=== PATIENT | female | born 1960 | race Two or more races ===

== ENCOUNTER 2025-01-03 21:17 | Inpatient (IN) | payer MEDICARE, MEDICAID, SELFPAY ==
[2025-01-03 21:21] VITALS: BP 145/83; PULSE 79; RESP 19; TEMP 36.7; O2SAT 95; BMI 32.3
--- NOTE | 2025-01-03 21:30 | EKG_ITS ---
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
--- NOTE | 2025-01-03 21:30 | XR_ITS ---
Examination: CT brain head without contrast. 2-D sagittal coronal reconstructions Date and time of exam:January 03, 2025 10:26 PM INDICATIONS: Altered mental status today CTDI: vol (mGy):46.1 DLP: (mGycm):868 Technique: Multiple CT axial sections of the brain have been obtained, 5 mm slice thickness. Contrast has not been administered. 2-D sagittal, coronal reconstructions have been obtained Low dose protocols were performed. One or more of the following dose reduction techniques were used; automated exposure control, adjustment of the mA and/or KV according to patient size, use of iterative reconstruction technique. Findings: No significant ventricular enlargement. Intra-axial or extra-axial hemorrhage density is not seen. No mass effect or midline shift Basal cisterns are not remarkable. Fourth ventricle is midline. Cranial vault intact. Old fracture medial wall left orbit Impression: Negative for acute hemorrhage, mass effect or midline shift Advise clinical correlation and follow up accordingly
[2025-01-03 21:38] VITALS: PULSE 80; RESP 20; O2SAT 97
[2025-01-03 21:45] LABS: Basophils # (Auto) 0.1 Thou/mm3 (0.0-0.2); Basophils % (Auto) 1 % (0-2.5); Eosinophils # (Auto) 0.2 Thou/mm3 (0.0-0.5); Eosinophils % (Auto) 3 % (0-10); Hematocrit 33.6 % (36.0-46.0); Hemoglobin 11.2 g/dL (12.0-16.0); Immature Granulocytes % (Auto) 1 % (0-0); Immature Granulocytes Auto 0.07 Thou/mm3 (0.00-0.00); Lymphocytes # (Auto) 1.8 Thou/mm3 (1.0-4.8); Lymphocytes % (Auto) 24 % (10-50); Mean Corpuscular HGB Conc 33.3 g/dl (31.0-37.0); Mean Corpuscular Hemoglobin 30.6 pg (25.0-35.0); Mean Corpuscular Volume 92 fL (80-100); Monocytes # (Auto) 0.6 Thou/mm3 (0.0-0.8); Monocytes % (Auto) 8 % (0-12); Neutrophils # (Auto) 4.6 Thou/mm3 (1.8-7.7); Neutrophils % (Auto) 63 % (37-80); Nucleated Red Blood Cell % 0 /100 WBC (0); Platelet Count 225 Thou/mm3 (140-440); RDW Standard Deviation 48.9 fL (36.4-46.3); Red Blood Count 3.66 Miln/mm3 (4.00-5.20); White Blood Count 7.3 Thou/mm3 (3.6-11.0)
[2025-01-03 22:00] VITALS: BP 183/94; PULSE 79; RESP 20
[2025-01-03 22:03] LABS: B-Type Natriuretic Peptide 427 pg/mL (0-100)
[2025-01-03 22:07] LABS: Alanine Aminotransferase 13 U/L (10-49); Albumin, Serum 4.3 gm/dL (3.4-4.8); Albumin/Globulin Ratio 1.7 (1.2-2.2); Alkaline Phosphatase 216 U/L (46-116); Anion Gap 9 (7-16); Aspartate Amino Transferase 15 U/L (0-34); BUN/Creatinine Ratio 7 Ratio (12-20); Bilirubin,Total 0.4 mg/dL (0.3-1.2); Blood Urea Nitrogen 30 mg/dL (9-23); Calcium 9.4 mg/dL (8.3-10.6); Calcium (Corrected) 9.4 mg/dL (8.5-10.1); Carbon Dioxide 29.4 mMol/L (20.0-31.0); Chloride 98 mMol/L (98-107); Creatinine (Component) 4.1 mg/dL (0.6-1.3); Estimated Creatinine Clearance 11.2 mL/min (>60); Globulin 2.5 gm/dL (2.3-3.5); Glucose 184 mg/dL (74-106); Magnesium 2.3 mg/dL (1.6-2.6); Osmolality,Calculated 283 (275-295); Potassium 5.2 mMol/L (3.4-5.1); Sodium 136 mMol/L (136-145); Total Protein 6.8 gm/dL (5.7-8.2); eGFR 11 See Note
[2025-01-03 22:10] LABS: Troponin I 0.138 ng/mL (0.0-0.045)
--- NOTE | 2025-01-03 22:20 | PD.EDWEAK ---
ED Weakness RME/HPI General Chief complaint: Weakness Stated complaint: WEAKNESS Time Seen by Provider: 01/03/25 21:29 Source: patient and EMS Arrival date/time: 01/03/25 21:17 Mode of arrival: EMS Limitations: no limitations RME / HPI RME / HPI Narrative: Patient is a 64-year-old female who is brought in by EMS for altered mental status. She has a history of end-stage renal disease and finished around dialysis today. Patient has a remote history of CVA. She is currently not anticoagulated. She has had no falls or injuries. EMS report patient had a transient episode of increased altered mental status with difficulty with speech. She had no unilateral weakness, facial droop, or dizziness. She now has generalized weakness. There is been no fevers or chills. Patient has had no vomiting or diarrhea. No changes in urination. No open wounds or skin changes. There are no other acute complaints. Related Data Home Medications ?Medication ?Instructions ?Recorded ?Confirmed donepezil 5 mg tablet 5 mg PO QDAY 12/16/22 07/22/23 aspirin 81 mg chewable tablet 81 mg PO QAM 07/22/23 07/22/23 losartan 25 mg tablet 25 mg PO DAILY 07/22/23 07/22/23 spironolactone 25 mg tablet 25 mg PO QAM 07/22/23 07/22/23 Previous Rx's ?Medication ?Instructions ?Recorded pantoprazole 40 mg tablet,delayed 40 mg PO QDAY #30 tabs 12/26/22 release amoxicillin 875 mg-potassium 1 tab PO BID #14 tabs 05/08/23 clavulanate 125 mg tablet Allergies Allergy/AdvReac Type Severity Reaction Status Date / Time morphine Allergy Severe Agitated Verified 09/04/23 18:34 Review of Systems Review of Systems Systems Reviewed: All systems reviewed, normal except as documented ED Exam General Limitations: Present no limitations General appearance: Present alert and in no apparent distress Head Head exam: Present atraumatic Eye Eye exam: Present normal appearance, PERRL and EOMI ENT ENT exam: Present normal exam, normal oropharynx and mucous membranes moist Neck Neck exam: Present normal inspection, full ROM and trachea midline Chest Chest inspection: Present normal inspection and symmetric chest wall rise Respiratory Respiratory exam: Present normal lung sounds bilaterally Cardiovascular Cardiovascular exam: Present regular rate, normal rhythm and normal heart sounds Abdominal Exam Abdominal exam: Present soft and normal bowel sounds Extremities Exam Extremities exam: Present normal inspection and full ROM Back Exam Back exam: Present normal inspection and full ROM Neurological Exam Neurological exam: Present alert, oriented X3 and CN II-XII intact Psychiatric Psychiatric exam: Present normal affect and normal mood Skin Skin exam: Present warm, dry, intact and normal color Course Quality Measures none Orders Category Date Time Status EKG (ED ONLY) *Do not use* NOW Care 01/03/25 21:30 Completed IV [Insert IV] NOW Care 01/04/25 01:[address] head/brain wo con Stat Exams 01/03/25 21:30 Completed EKG (ED Only) Stat Exams 01/03/25 21:30 Draft Ammonia Stat Lab 01/03/25 23:47 Completed BNP [B-Type Natriuretic Peptide] Stat Lab 01/03/25 21:39 Completed Blood Culture (Lab) Stat Lab 01/04/25 00:04 Received CBC Stat Lab 01/03/25 21:39 Completed CMP [Comprehensive Metabolic Panel] Stat Lab 01/03/25 21:39 Completed Drug Screen,Urine Stat Lab 01/03/25 23:55 Completed Mag [Magnesium] Stat Lab 01/03/25 21:39 Completed Salicylate Stat Lab 01/03/25 23:46 Completed T4 (Thyroxine) Stat Lab 01/03/25 23:46 Completed Thyroid Stimulating Hormone Stat Lab 01/03/25 23:46 Completed Troponin I Stat Lab 01/03/25 21:39 Completed UA, C/S IF [Urinalysis, C/S if Indicated] Stat Lab 01/03/25 23:55 Completed Urine Culture Stat Lab 01/03/25 23:55 Received cefTRIAXone/D5w 1gm IV premix [Rocephin/D5w 1gm IV Med 01/04/25 00:45 Discontinued premix] 1 gm in 50 ml IV NOW Vital Signs Vital signs: Vital Signs Temperature 98.0 F 01/03/25 21:21 Pulse Rate 79 01/03/25 21:21 Respiratory Rate 19 01/03/25 21:21 Blood Pressure 145/83 H 01/03/25 21:21 Pulse Oximetry (%) 95 01/03/25 21:21 Oxygen Delivery Method Room Air 01/03/25 21:21 Weakness MDM Narrative MDM Narrative:: 64-year-old female is brought in by EMS for altered mental status while at home. She she has no falls or injuries. She does have end stage enal disease and finished around dialysis today. Altered mental status was described by EMS as transient decreased level of consciousness and difficulty with speech. Patient is reportedly back at baseline now. She has remote history of CVA and is currently not anticoagulated. Vital signs are stable during transport. She is answering questions appropriately here. Responses are somewhat delayed, however EMS states that this is her baseline, per family. Patient with intermittent episodes of delirium. Urinalysis positive for infection. Patient not septic at this time. Provided patient with antibiotics, discussed case with hospitalist, kindly excepted patient for admission Patient data External records reviewed:: Other (specify) Clinical information provided by:: patient and EMS Social determinants that could affect healthcare access:: none Patient has the following chronic illnesses:: ESRD, diabetes, hypertension dementia How is presenting disease/condition affected by chronic disease/condition?: exacerbated by Evaluation data The following diagnostics were reviewed and interpreted by me:: lab results, EKG tracing(s) (EKG obtained today at 20 1:54 PM. EKG reveals normal sinus rhythm with nonspecific ST changes. Voltage criteria met for left ventricular hypertrophy.) and other (specify) Lab and/or radiology exams considered but not ordered:: n/a Interpretation Summary: n/a Medications / Prescriptions Medications or Prescriptions considered but not ordered:: n/a Medication administrations:: Medication Administration History Acetaminophen (Acetaminophen 325 Mg Tablet) 650 mg PO Q6H PRN PRN Reason: pain and Fever >100.4 Stop: 02/03/25 01:34 Albuterol/Ipratropium (Albuterol/Ipratropium (Duoneb) Rt Angela 3 Ml Nebu) 3 ml INH Q4HR PRN PRN Reason: SHORTNESS OF BREATH OR WHEEZE Stop: 02/03/25 02:00 Dextrose (Dextrose 50%-Water Inj 50 Ml Syringe) 25 ml IV Q15MIN PRN PRN Reason: BG 50-70 responsive npo pt Stop: 02/03/25 01:39 Dextrose (Dextrose 50%-Water Inj 50 Ml Syringe) 50 ml IV Q15MIN PRN PRN Reason: BG <50 OR BG <70 & pt unresponsive Stop: 02/03/25 01:39 Glucagon (Glucagon Inj 1 Mg Vial) 1 mg IM Q15MIN PRN PRN Reason: BG <70, and no IV access Heparin Sodium (Porcine) (Heparin Sod Inj 5000 Unit/Ml Vial) 5,000 unit SC Q8HR REKHA Stop: 01/18/25 05:59 Ceftriaxone Sodium/Dextrose (Rocephin/D5w 1gm Iv Premix) 1 gm in 50 mls @ 100 mls/hr IV QDAY REKHA Stop: 01/12/25 08:59 Insulin Human Lispro (Insulin Lispro (Admelog) 1 Unit/0.01 Ml Unit) 0 unit SC Q6HR REKHA; Protocol Stop: 02/03/25 05:59 Ondansetron HCl (Ondansetron Inj 2 Mg/Ml Inj 2 Ml) 4 mg IVP Q6H PRN; Protocol PRN Reason: NAUSEA OR VOMITING Stop: 02/03/25 01:34 Pantoprazole Sodium (Pantoprazole Inj 40 Mg Vial) 40 mg IVP QDAY REKHA Stop: 02/03/25 08:59 Discontinued Medications Ceftriaxone Sodium/Dextrose (Rocephin/D5w 1gm Iv Premix) 1 gm in 50 mls @ 100 mls/hr IV NOW ONE Stop: 01/04/25 01:14 Last Infusion: 01/04/25 01:48 Dose: Infused Documented By: Admin: 01/04/25 01:18 Dose: 100 mls/hr Documented By: CG n/a Consultations Consultation(s) initiated? (list below): Yes Consultation #1 (Physician, Specialty, Details): Hospitalist Diagnosis Weakness Differential Diagnosis: other Most likely diagnosis given after review of the tests above:: Urinary tract infection, metabolic encephalopathy Admission Indicated Admission indicated?: not indicated (pending work up) Admission Request Was there a request for admission?: No Disposition Plan Disposition Plan: Admit (pending) Critical Care Time Critical Care Time Total Critical Care Time (min.): 35 Discharge Plan Plan Patient Disposition: Admit Acute Care w/in Hospital Problem List Clinical Impression: UTI (urinary tract infection), Metabolic encephalopathy
--- NOTE | 2025-01-03 23:19 | PD.EDADDENDU ---
Emergency Room Addendum <Dina Beltran - Last Filed: 01/04/25 01:05> Addendum Narrative: 2300: Care assumed from Francis Orozco PA-C. Past medical, surgical, social and family history reviewed. Vitals and home medications reviewed. Results and treatment plan discussed. I will assume the care of the patient at this time and will follow the patient, pending CT head and urinalysis. Please refer to the emergency department record for history and examination from initial visit. 0016: I was informed by the nurse that the patient is now more altered than normal. Per , patient does have episodes of confusion, but has never had an episode this bad. Patient does have a history of ESRD on HD, DM, and HTN. Pending urinalysis at this time. Ammonia level unremarkable. UA shows 1+ protein, 4+ glucose, positive leukocyte esterase, 1190 WBCs, and present yeast. UDS negative. 0102: Discussed case with Dr. Gorman the resident physician, attending Dr. Chan from Hospitalist service regarding admission. Discussed patients ED course, exam findings, labs, and radiology results. The Hospitalist agrees to accept the patient for admission. Diagnoses: UTI, metabolic encephalopathy RADIOLOGY RESULTS: [facility] Report Signed Patient: ALBERTA JUAREZ. Record#: [id number] Birthdate: 1960 Age/Sex: 64 / F Location: [facility] Attending Dr: Ordering Physician: Francis Orozco PA-C Date of Service: 01/03/25 Procedure(s): CT head/brain wo con Accession Number(s): [id number] cc: Francisco Javier Cruz MD; NO PRIMARY/FAMILY,PHYSICIAN; Francis Orozco PA-C~ Examination: CT brain head without contrast. 2-D sagittal coronal reconstructions Date and time of exam:January 03, 2025 10:26 PM INDICATIONS: Altered mental status today CTDI: vol (mGy):46.1 DLP: (mGycm):868 Technique: Multiple CT axial sections of the brain have been obtained, 5 mm slice thickness. Contrast has not been administered. 2-D sagittal, coronal reconstructions have been obtained Low dose protocols were performed. One or more of the following dose reduction techniques were used; automated exposure control, adjustment of the mA and/or KV according to patient size, use of iterative reconstruction technique. Findings: No significant ventricular enlargement. Intra-axial or extra-axial hemorrhage density is not seen. No mass effect or midline shift Basal cisterns are not remarkable. Fourth ventricle is midline. Cranial vault intact. Old fracture medial wall left orbit Impression: Negative for acute hemorrhage, mass effect or midline shift Advise clinical correlation and follow up accordingly Dictated By: Francisco Javier Cruz MD Signed By: <Electronically signed by Francisco Javier Cruz MD in OV> 01/03/25 [id number] MD Attestation <María Elena Gan MD - Last Filed: 03/23/25 23:39> MD Attestation ?I spent 60 minutes of critical care time with this patient not including reportable procedures. There was an acute impairment of an organ system with a high probability of imminent or life threatening deterioration in the patient's condition. Interventions and changes required in the course of therapy are located in the chart. Time involved was spent in direct patient care, reviewing ancillary data, old records, consulting with decision makers, EMS, other doctors, giving orders and documenting.
--- NOTE | 2025-01-03 23:45 | PC.NURSE ---
Change in condition noted, reported to charge nurse and ER MD at this time, pt is confused attempting to climb out of bed, stating that she wants to get into her wheelchair and go home, no acute distress noted or reported at this time, at bedside
[2025-01-04] VITALS (27 sets, daily range): BP systolic 84–177; BP diastolic 38–103; PULSE 47–89; RESP 16–97; TEMP 36.1–37; O2SAT 92–100; BMI 34.1
[2025-01-04 00:16] LABS: Collection Type, Urine Clean Catch
[2025-01-04 00:27] LABS: Bilirubin,Urine Negative (Negative); Blood,Urine 1+ (Negative); Budding Yeast,Urine Present; Color,Urine Yellow (Lt Yel-Yel); Glucose, Urine 4+ (Negative); Ketones,Urine Negative (Negative); Leukocyte Esterase,Urine Positive (Negative); Nitrite,Urine Negative (Negative); PH,Urine 6.5 (5.0-7.0); Protein,Urine 1+ (Neg - Trace); RBC,Urine 1 /hpf (0-3); Specific Gravity,Urine 1.011 (1.001-1.035); Squamous Epithelial Cell,Urine 3 /hpf (0-5); Urobilinogen,Urine Negative mg/dL (0.0-1.0); WBC,Urine 1190 /hpf (0-5)
[2025-01-04 00:29] LABS: Amphetamine/Methamp Scrn,U Negative (Negative); Barbiturate Screen,Urine Negative (Negative); Benzodiazepines Screen,Urine Negative (Negative); Benzoylecgonine Screen, Ur Negative (Negative); Fentanyl Screen,Urine Negative (Negative); Opiate Screen,Urine Negative (Negative); THC Screen,Urine Negative (Negative)
[2025-01-04 00:35] LABS: Ammonia < 10 uMol/L (11-32)
[2025-01-04 00:37] LABS: Clarity,Urine Turbid (Clear/Hazy); Culture Indicated,Urine Yes
[2025-01-04 00:43] LABS: Salicylate < 3.0 mg/dL; Thyroid Stimulating Hormone 3.71 uIU/mL (0.55-4.78)
[2025-01-04] MEDS: cefTRIAXone/D5w 1gm IV premix 1 GM/50 ML BAG IV ×2 (01:18→20:30)
--- NOTE | 2025-01-04 01:37 | PD.ADDHP ---
Addendum History & Physical Addendum Date of report being addended: 01/04/25 Narrative: Attending's attestation: I reviewed labs, imaging, EKG, home medications and prior available records. Face to face evaluation was performed by me. I have personally examined the patient and discussed assessment and plan with the IM team. I reviewed the resident note and agree with the plan with exceptions as below. Acute encephalopathy Hallucinations Acute UTI Dementia, likely Alzheimer's type Essential hypertension Start IV ceftriaxone Follow-up urine cultures Delirium precautions Resume antihypertensive treatment
--- NOTE | 2025-01-04 01:44 | ESHP_ITS ---
Documentation for date of: 01/04/25 [facility] History of Present Illness Chief complaint: AMS History of present illness: 64-year-old female with past medical history of HFrEF (EF 35 to 40% on 2023), ESRD on hemodialysis, DM2, hypertension, GERD, dementia, and asthma admitted to the hospital on 01/04/2025 after coming to the ED with complaints of altered mental status. Patient was examined at bedside and patient was AO x 3 at this time, but she was very somnolent. She required repeated verbal stimuli in order to respond and be awake, but once she was awake she was able to answer all questions and to follow commands, but she afterwards went back to sleep shortly. Patient stated that she felt fine, but patient's was at bedside stated that today she had a session of hemodialysis and that normally the sessions last around 3 hours and that towards the last hour she normally would get confused because of low blood pressure. He stated that today that was a similar case as her blood pressure dropped and she became more confused and some trouble speaking, but she went back to her baseline shortly and then back again to being altered. Patient was able to respond to all questions and answer appropriately, but only was going back to sleep and was very somnolent. Patient has not had any recent sick contacts, has not felt any fevers, chills, sweats, chest pain, nausea, vomiting, changes in bowel movements, shortness of breath, or swelling of the lower extremities. Patient does have a cough, but patient's stated that this is chronic for her. ED course: Initially came in hypertensive and afebrile. Initial labs were relevant for hyperkalemia, azotemia, troponin EMEA, elevated BNP, and UA was positive for leukocyte esterase, WBCs, and yeast. Initial imaging included head CT which did not show any acute hemorrhage, mass effect, or midline shift. EKG was also done and showed sinus rhythm. PMH: HFrEF (EF 35 to 40% on 2023), ESRD on hemodialysis, DM2, hypertension, GERD, dementia, and asthma Social Hx: Denies any smoking, drugs, alcohol Allergies: Morphine Review of Systems Review of Systems Systems Reviewed: All systems reviewed, normal except as documented Past Medical History Past Medical History Comments PMH COMMENT: PMH: HFrEF (EF 35 to 40% on 2023), ESRD on hemodialysis, DM2, hypertension, GERD, dementia, and asthma Social Hx: Denies any smoking, drugs, alcohol Allergies: Morphine Exam Vital Signs Temp Pulse Resp BP Pulse Ox O2 Del Method 97.9 F 73 16 148/98 H 96 Room Air 01/04/25 00:36 01/04/25 00:36 01/04/25 00:36 01/04/25 00:36 01/04/25 00:36 01/04/25 00:36 Narrative Exam General: A/O x3, but very somnolent Eyes: pupils sluggish, EOMI. Anicteric, vision grossly intact. Ears: No ear pain, no ear discharge, Hearing grossly intact. Nose: No nasal discharge. Mouth/Throat: Dry mucous membranes, no redness, no lesions. Neck: Neck supple, non-tender, no cervical lymphadenopathy. Lungs: Clear MILAN to auscultation and percussion, No accessory muscle use. Cardio: Normal S1/S2, regular rhythm, no murmurs, no JVD Abdomen: Soft, non-tender, no palpable masses, peristalsis present, no guarding or rebound. Extremities: Symmetrical, no significant deformities, no peripheral edema , non-tender, peripheral pulses presents. Skin: No rashes, no lesions, warm to touch. Neuro: No focal neurological deficits. motor and sensory intact Results: Labs 01/03/25 21:39 01/04/25 02:00 Labs: Short CBC 01/03/25 Range/Units 21:39 WBC 7.3 (3.6-11.0) Thou/mm3 Hgb 11.2 L (12.0-16.0) g/dL Hct 33.6 L (36.0-46.0) % Plt Count 225 (140-440) Thou/mm3 BMP 01/03/25 21:39 Sodium 136 Potassium 5.2 H Chloride 98 Carbon Dioxide 29.4 BUN 30 H Creatinine 4.1 H* Glucose 184 H Calcium 9.4 Cardiac Enzymes 01/03/25 Range/Units 21:39 Troponin I 0.138 H* (0.0-0.045) ng/mL Liver Function 01/03/25 Range/Units 21:39 Total Bilirubin 0.4 (0.3-1.2) mg/dL AST 15 (0-34) U/L ALT 13 (10-49) U/L Alkaline Phosphatase 216 H (46-116) U/L Albumin 4.3 (3.4-4.8) gm/dL Urine 01/03/25 Range/Units 23:55 Urine Color Yellow (Lt Yel-Yel) Urine Clarity Turbid A (Clear/Hazy) Urine pH 6.5 (5.0-7.0) Ur Specific [place] 1.011 (1.001-1.035) Urine Protein 1+ A (Neg - Trace) Urine Glucose (UA) 4+ A (Negative) Quality Measures Quality Measures none Advance care planning discussed with:: patient and spouse Medications Home Medications and Allergies Home Medications ?Medication ?Instructions ?Recorded ?Confirmed ?Type donepezil 5 mg tablet 5 mg PO HS 12/16/22 01/04/25 History losartan 25 mg tablet 25 mg PO DAILY 07/22/2312/19 History spironolactone 25 mg tablet 25 mg PO QAM 07/22/2312/19 History budesonide-formoterol HFA 80 2 puff inhalation BID PRN 01/04/25 01/04/25 History mcg-4.5 mcg/actuation aerosol shortness of breath or w heezing inhaler (Breyna) carvedilol 12.5 mg tablet 12.5 mg PO BID 01/04/2512/19 History empagliflozin 25 mg tablet 25 mg PO QAM 01/04/2501/04 History (Jardiance) furosemide 80 mg tablet 80 mg PO BID 01/04/25 History insulin degludec 100 unit/mL (3 22 unit subcut .AM 01/04/25 History mL) subcutaneous pen (Tresiba FlexTouch U-100 insulin) insulin lispro 100 unit/mL 1 sliding scale dose subcut BID 01/04/25 01/04/25 History subcutaneous pen (Humalog KwikPen (U-100) Insulin) loratadine 10 mg disintegrating 10 mg PO QDAY 01/04/25 01/04/25 History tablet (Alavert) sennosides 8.6 mg tablet (senna) 8.6 mg PO QDAY PRN co nstipation 01/04/25 01/04/25 History sevelamer carbonate 800 mg tablet 800 mg PO TIDWMEAL 0 01/04/25 01/04/25 History Allergies Allergy/AdvReac Type Severity Reaction Status Date / Time morphine Allergy Severe Agitated Verified 09/04/23 18:34 Visit Medications Acetaminophen (Acetaminophen 325 Mg Tablet) 650 mg PO Q6H PRN PRN Reason: pain and Fever >100.4 Stop: 02/03/25 01:34 Dextrose (Dextrose 50%-Water Inj 50 Ml Syringe) 25 ml IV Q15MIN PRN PRN Reason: BG 50-70 responsive npo pt Stop: 02/03/25 01:39 Dextrose (Dextrose 50%-Water Inj 50 Ml Syringe) 50 ml IV Q15MIN PRN PRN Reason: BG <50 OR BG <70 & pt unresponsive Stop: 02/03/25 01:39 Glucagon (Glucagon Inj 1 Mg Vial) 1 mg IM Q15MIN PRN PRN Reason: BG <70, and no IV access Heparin Sodium (Porcine) (Heparin Sod Inj 5000 Unit/Ml Vial) 5,000 unit SC Q8HR REKHA Stop: 01/18/25 05:59 Ceftriaxone Sodium/Dextrose (Rocephin/D5w 1gm Iv Premix) 1 gm in 50 mls @ 100 mls/hr IV QDAY REKHA Stop: 01/12/25 08:59 Insulin Human Lispro (Insulin Lispro (Admelog) 1 Unit/0.01 Ml Unit) 0 unit SC Q6HR REKHA; Protocol Stop: 02/03/25 05:59 Ondansetron HCl (Ondansetron Inj 2 Mg/Ml Inj 2 Ml) 4 mg IVP Q6H PRN; Protocol PRN Reason: NAUSEA OR VOMITING Stop: 02/03/25 01:34 Pantoprazole Sodium (Pantoprazole Inj 40 Mg Vial) 40 mg IVP QDAY REKHA Stop: 02/03/25 08:59 Discontinued Medications Ceftriaxone Sodium/Dextrose (Rocephin/D5w 1gm Iv Premix) 1 gm in 50 mls @ 100 mls/hr IV NOW ONE Stop: 01/04/25 01:14 Last Admin: 01/04/25 01:18 Dose: 100 mls/hr Assessment & Plan Plan 64-year-old female with past medical history of HFrEF (EF 35 to 40% on 2023), ESRD on hemodialysis, DM2, hypertension, GERD, dementia, and asthma admitted to the hospital on 01/04/2025 for acute encephalopathy likely metabolic in the setting of UTI versus due to her history of dementia. #Acute cephalopathy #UTI #Hx of dementia Patient came in initially with complaints of altered mental status. Patient's who stated that after hemodialysis her blood pressure was low when she started getting more confused. On assessment patient was AO x 3, but was very somnolent. Head CT did not show any hemorrhage, mass effect, or midline shift. DDx could include metabolic encephalopathy in the setting of UTI versus worsening symptoms of patient's dementia versus medication induced UA was positive for signs of esterase and copious amounts of WBC (1190) No fevers or WBC elevation Plan: Ceftriaxone 1 g daily Ordered lactic acid and VBG Blood and urine cultures ordered If no improvement in patient's somnolence consider MRI brain. 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 Diet: NPO GI prophylaxis: protonix DVT prophylaxis: heparin subcu Code: Full Case disclosed with Attending Dr. Dustin Clarke PGY1 Disclaimer: Even though this this note was dictated by speech recognition and even though it was carefully revised there may still be minor errors in sawmill equipment operator due to voice recognition software. Attending Provider Attestation/Addendum I reviewed labs, imaging, EKG, home medications and prior available records. Face to face evaluation was performed by me. I have personally examined the patient and discussed assessment and plan with the IM team. I reviewed the resident note and agree with the plan with exceptions as below. Acute encephalopathy Hallucinations Acute UTI Dementia, likely Alzheimer's type Essential hypertension Start IV ceftriaxone Follow-up urine cultures Delirium precautions Resume antihypertensive treatment
[2025-01-04 02:07] LABS: Lactate (Lactic Acid) 1.3 mMol/L (0.4-2.0)
[2025-01-04 02:08] LABS: Base Excess, Venous 4 (-3-3); O2 Saturation, Venous 64 % (96-97); PCO2, Venous 50 mmHg (36-56); PO2, Venous 34 mmHg (15-58); pH, Venous 7.38 (7.33-7.66)
[2025-01-04 02:56] LABS: Potassium 4.9 mMol/L (3.4-5.1)
[2025-01-04 02:58] LABS: Troponin I 0.138 ng/mL (0.0-0.045)
--- NOTE | 2025-01-04 03:53 | PC.NURSE ---
Report received from [facility].
--- NOTE | 2025-01-04 03:54 | PC.NURSE ---
Report called to floor nurse, ZAIRA Chairez
--- NOTE | 2025-01-04 05:24 | PC.NURSE ---
PT LETHARGIC, BLOOD SUGAR 77, SKIN WARM AND DRY. PT NPO. DR ORTEGA NOTIFIED AND ORDER TO GIVE D50 25ML IV ORDERED HYPOGLYCEMIA PROTOCOL.
[2025-01-04] MEDS: DEXTROSE 50%-WATER INJ 50 ML SYRINGE 25 ML IV (05:29)
[2025-01-04] MEDS: HEPARIN SOD INJ 5000 UNIT/ML VIAL SC ×3 (05:32→21:02)
--- NOTE | 2025-01-04 05:52 | PC.NURSE ---
DR. ORTEGA NOTIFIED OF POST D50 BLOOD SUGAR 152, PT AROUSABLE, ALERT TO SELF BUT FALLS BACK TO SLEEP SHORTLY. NO NEW ORDER. PT'S AT BEDSIDE AND UPDATED WITH PLAN OF CARE AND VERBALIZED UNDERSTANDING.
[2025-01-04] MEDS: PANTOPRAZOLE INJ 40 MG VIAL IVP (08:30)
[2025-01-04 08:55] LABS: Basophils # (Auto) 0.1 Thou/mm3 (0.0-0.2); Basophils % (Auto) 1 % (0-2.5); Eosinophils # (Auto) 0.2 Thou/mm3 (0.0-0.5); Eosinophils % (Auto) 4 % (0-10); Hematocrit 33.5 % (36.0-46.0); Hemoglobin 10.9 g/dL (12.0-16.0); Immature Granulocytes % (Auto) 1 % (0-0); Immature Granulocytes Auto 0.04 Thou/mm3 (0.00-0.00); Lymphocytes % (Auto) 31 % (10-50); Mean Corpuscular HGB Conc 32.5 g/dl (31.0-37.0); Mean Corpuscular Hemoglobin 30.4 pg (25.0-35.0); Mean Corpuscular Volume 93 fL (80-100); Monocytes # (Auto) 0.7 Thou/mm3 (0.0-0.8); Monocytes % (Auto) 11 % (0-12); Neutrophils # (Auto) 3.3 Thou/mm3 (1.8-7.7); Neutrophils % (Auto) 52 % (37-80); Nucleated Red Blood Cell % 0 /100 WBC (0); Platelet Count 197 Thou/mm3 (140-440); RDW Standard Deviation 49.8 fL (36.4-46.3); Red Blood Count 3.59 Miln/mm3 (4.00-5.20); White Blood Count 6.3 Thou/mm3 (3.6-11.0)
[2025-01-04 09:20] LABS: Alanine Aminotransferase 12 U/L (10-49); Albumin, Serum 3.9 gm/dL (3.4-4.8); Albumin/Globulin Ratio 1.6 (1.2-2.2); Alkaline Phosphatase 188 U/L (46-116); Anion Gap 8 (7-16); Aspartate Amino Transferase 19 U/L (0-34); BUN/Creatinine Ratio 8 Ratio (12-20); Bilirubin,Total 0.4 mg/dL (0.3-1.2); Blood Urea Nitrogen 33 mg/dL (9-23); Calcium 8.7 mg/dL (8.3-10.6); Calcium (Corrected) 8.8 mg/dL (8.5-10.1); Carbon Dioxide 29.7 mMol/L (20.0-31.0); Cardiac Risk Estimate 5.7 RATIO (3.7-5.6); Chloride 100 mMol/L (98-107); Cholesterol 193 mg/dL (132-200); Creatinine (Component) 4.3 mg/dL (0.6-1.3); Globulin 2.5 gm/dL (2.3-3.5); Glucose 116 mg/dL (74-106); HDL Cholesterol 34 mg/dL (40-60); LDL Cholesterol,Calculated 111 mg/dL (0-130); Magnesium 2.1 mg/dL (1.6-2.6); Osmolality,Calculated 283 (275-295); Potassium 5.2 mMol/L (3.4-5.1); Sodium 138 mMol/L (136-145); Total Protein 6.4 gm/dL (5.7-8.2); Triglycerides 241 mg/dL (30-150); eGFR 11 See Note
[2025-01-04 09:31] LABS: Glucose Estimated Average 223 mg/dL (80-131); Hemoglobin A1C 9.4 % Hgb (4.8-6.0)
[2025-01-04 09:32] LABS: Troponin I 0.146 ng/mL (0.0-0.045)
--- NOTE | 2025-01-04 09:34 | PD.RESCONSUL ---
HPI Data of Consult Consult date: 01/04/25 Requesting Physician: Gavin Woodson MD Admitting Provider: Troy Chan MD Attending Provider: Gavin Woodson MD Primary Care Provider: Physician No Primary/Family Consult Narrative Reason for consult: ESRD History of present illness: HPI is limited as patient is poor historian at this time Arely is a 64-year-old female with past medical history of HFrEF (EF 35 to 40% on 2023), ESRD on hemodialysis, DM2, hypertension, GERD, dementia, and asthma who was admitted to [facility] on 01/04/2025 for evaluated of altered mental status. Pt is poor historian at this time but upon chart review, it was noted pt had HD session yesterday which was limited because of hypotension. Her inventory and pricing associate is Dr. Castillo and her HD schedule is believed to be MWF. She is unable to answer questions at this time and is very difficult to arouse. ED course: Initially came in hypertensive and afebrile. Initial labs were relevant for hyperkalemia, azotemia, troponin EMEA, elevated BNP, and UA was positive for leukocyte esterase, WBCs, and yeast. Initial imaging included head CT which did not show any acute hemorrhage, mass effect, or midline shift. EKG was also done and showed sinus rhythm. PMH: HFrEF (EF 35 to 40% on 2023), ESRD on hemodialysis, DM2, hypertension, GERD, dementia, and asthma Social Hx: Denies any smoking, drugs, alcohol Allergies: Morphine cc:: cc: Gavin Woodson MD Review of Systems Review of Systems Narrative Review of Systems: ROS is limited at this time as patient is poor historian and lethargic at this time Exam Vital Signs Temp Pulse Resp BP Pulse Ox O2 Del Method 97.1 F 70 18 115/62 98 Room Air 01/04/25 09:12 01/04/25 09:30 01/04/25 09:12 01/04/25 09:30 01/04/25 09:12 01/04/25 08:00 Narrative Exam General: AAOx1, very lethargic at this time, difficult to arouse, obese female HEENT: Moist mucous membranes, conjunctiva clear, EOMI, PERRLA, Cardiovascular: S1, S2, radial pulses +2 bilat, RRR Pulmonary: CTAB bilat no cough, no wheezing GI: No tenderness to light or deep palpitation, no guarding, rigidity, rebound tenderness or distension Extremities: No presence of trace or pitting edema in lower extremities bilaterally, dorsalis pedis pulses +2 bilaterally RIJ PERM CATH Neuro: AAOx1, difficult to arouse, limited neuroexam Psych: Good judgement, thought and behavior Results Labs 01/04/25 08:20 01/04/25 08:20 Labs: Short CBC 01/03/25 01/04/25 Range/Units 21:39 08:20 WBC 7.3 6.3 (3.6-11.0) Thou/mm3 Hgb 11.2 L 10.9 L (12.0-16.0) g/dL Hct 33.6 L 33.5 L (36.0-46.0) % Plt Count 225 197 (140-440) Thou/mm3 BMP 01/03/25 01/04/25 01/04/25 21:39 02:00 08:20 Sodium 136 138 Potassium 5.2 H 4.9 5.2 H Chloride 98 100 Carbon Dioxide 29.4 29.7 BUN 30 H 33 H Creatinine 4.1 H* 4.3 H* Glucose 184 H 116 H D Calcium 9.4 8.7 Cardiac Enzymes 01/03/25 01/04/25 01/04/25 Range/Units 21:39 02:00 08:20 Troponin I 0.138 H* 0.138 H* 0.146 H* (0.0-0.045) ng/mL Liver Function 01/03/25 01/04/25 Range/Units 21:39 08:20 Total Bilirubin 0.4 0.4 (0.3-1.2) mg/dL AST 15 19 (0-34) U/L ALT 13 12 (10-49) U/L Alkaline Phosphatase 216 H 188 H D (46-116) U/L Albumin 4.3 3.9 (3.4-4.8) gm/dL Urine 01/03/25 Range/Units 23:55 Urine Color Yellow (Lt Yel-Yel) Urine Clarity Turbid A (Clear/Hazy) Urine pH 6.5 (5.0-7.0) Ur Specific [place] 1.011 (1.001-1.035) Urine Protein 1+ A (Neg - Trace) Urine Glucose (UA) 4+ A (Negative) ABG Interpretation ABG results: 01/04/25 02:00 VBG pH 7.38 VBG pCO2 50 VBG pO2 34 VBG Base Excess 4 H Quality Measures Quality Measures none Advance care planning discussed with:: patient Medications Home Medications and Allergies Home Medications ?Medication ?Instructions ?Recorded ?Confirmed ?Type donepezil 5 mg tablet 5 mg PO HS 12/16/22 01/04/25 History losartan 25 mg tablet 25 mg PO DAILY 07/22/23 01/04/25 History spironolactone 25 mg tablet 25 mg PO QAM 07/22/23 01/04/25 History budesonide-formoterol HFA 80 2 puff inhalation BID PRN 01/04/25 01/04/25 History mcg-4.5 mcg/actuation aerosol shortness of breath or wheezing inhaler (Breyna) carvedilol 12.5 mg tablet 12.5 mg PO BID 01/04/25 01/04/25 History empagliflozin 25 mg tablet 25 mg PO QAM 01/04/25 01/04/25 History (Jardiance) furosemide 80 mg tablet 80 mg PO BID 01/04/25 01/04/25 History insulin degludec 100 unit/mL (3 22 unit subcut .AM 01/04/25 01/04/25 History mL) subcutaneous pen (Tresiba FlexTouch U-100 insulin) insulin lispro 100 unit/mL 1 sliding scale dose subcut BID 01/04/25 01/04/25 History subcutaneous pen (Humalog KwikPen (U-100) Insulin) loratadine 10 mg disintegrating 10 mg PO QDAY 01/04/25 01/04/25 History tablet (Alavert) sennosides 8.6 mg tablet (senna) 8.6 mg PO QDAY PRN constipation 01/04/25 01/04/25 History sevelamer carbonate 800 mg tablet 800 mg PO TIDWMEAL 01/04/25 01/04/25 History Allergies Allergy/AdvReac Type Severity Reaction Status Date / Time morphine Allergy Severe Agitated Verified 09/04/23 18:34 Visit Medications Acetaminophen (Acetaminophen 325 Mg Tablet) 650 mg PO Q6H PRN PRN Reason: pain and Fever >100.4 Stop: 02/03/25 01:34 Albuterol/Ipratropium (Albuterol/Ipratropium (Duoneb) Rt Angela 3 Ml Nebu) 3 ml INH Q4HR PRN PRN Reason: SHORTNESS OF BREATH OR WHEEZE Stop: 02/03/25 02:00 Dextrose (Dextrose 50%-Water Inj 50 Ml Syringe) 25 ml IV Q15MIN PRN PRN Reason: BG 50-70 responsive npo pt Stop: 02/03/25 01:39 Last Admin: 01/04/25 05:29 Dose: 25 ml Dextrose (Dextrose 50%-Water Inj 50 Ml Syringe) 50 ml IV Q15MIN PRN PRN Reason: BG <50 OR BG <70 & pt unresponsive Stop: 02/03/25 01:39 Glucagon (Glucagon Inj 1 Mg Vial) 1 mg IM Q15MIN PRN PRN Reason: BG <70, and no IV access Heparin Sodium (Porcine) (Heparin Sod Inj 5000 Unit/Ml Vial) 5,000 unit SC Q8HR REKHA Stop: 01/18/25 05:59 Last Admin: 01/04/25 05:32 Dose: 5,000 unit Ceftriaxone Sodium/Dextrose (Rocephin/D5w 1gm Iv Premix) 1 gm in 50 mls @ 100 mls/hr IV HS REKHA Stop: 01/11/25 20:59 Insulin Human Lispro (Insulin Lispro (Admelog) 1 Unit/0.01 Ml Unit) 0 unit SC Q6HR REKHA; Protocol Stop: 02/03/25 05:59 Last Admin: 01/04/25 05:22 Dose: Not Given Ondansetron HCl (Ondansetron Inj 2 Mg/Ml Inj 2 Ml) 4 mg IVP Q6H PRN; Protocol PRN Reason: NAUSEA OR VOMITING Stop: 02/03/25 01:34 Pantoprazole Sodium (Pantoprazole Inj 40 Mg Vial) 40 mg IVP QDAY REKHA Stop: 02/03/25 08:59 Last Admin: 01/04/25 08:30 Dose: 40 mg Discontinued Medications Ceftriaxone Sodium/Dextrose (Rocephin/D5w 1gm Iv Premix) 1 gm in 50 mls @ 100 mls/hr IV NOW ONE Stop: 01/04/25 01:14 Last Infusion: 01/04/25 01:48 Dose: Infused Assessment & Plan Plan Assessment 64-year-old female with past medical history of HFrEF (EF 35 to 40% on 2023), ESRD on hemodialysis, DM2, hypertension, GERD, dementia, and asthma admitted to the hospital on 01/04/2025 for acute encephalopathy likely metabolic in the setting of UTI versus due to her history of dementia. #ESRD on HD BUN/Cr 30 and 4.1 respectively Pt appears to be very lethargic at this time Sees Dr. Castillo, nephrology Encephalopathy may be related to ESRD at this time Plan: Avoid nephrotoxic agents Renally dose medications Dialysis today with 2L goal Trend CMP and lytes Sevelamer 800 mg by mouth 3 times daily with meals #Acute encephalopathy #UTI #Hx of dementia #Hx of HFrEF (EF 35 to 40% on 2022) #NSTEMI likely type II #Hx of DM2 #GERD #Asthma #Elevated Troponins Above handled by primary hospitalist team Patient seen and care discussed with my attending physician, Dr. Serafin Britt, PGY-1 Attending Provider Attestation/Addendum Patient seen and examined with resident physician Dr. Valera. Note reviewed, agree with findings and recommendations. Patient currently seen on dialysis. Tolerating dialysis without any problems. Hemodialysis for 3 hours, 2K, ultrafiltration 2-3 L, Epogen 6000, no heparin ordered. Plan of care discussed with the dialysis nurse. Please see dialysis flowsheet for further details. Thank you Troy for allowing me to participate in the care of Mr. Knox
--- NOTE | 2025-01-04 10:53 | ESPR_ITS ---
Documentation for date of: 01/04/25 Subjective Subjective Interval history: Patient seen and examined at bedside. This morning patient was seen, responsive, opens eyes to name. Was seen later during dialysis session, patient is alert oriented x 1, able to move all 4 extremities grossly. Patient is unable to provide more history, is confused at times. Will continue with IV antibiotics, will continue to hold p.o. medications. May resume GDMT as patient tolerates, has no signs and symptoms of fluid overload, will monitor closely. Exam Vital Signs Temp Pulse Resp BP Pulse Ox O2 Del Method 97.1 F 71 18 145/75 H 98 Room Air 01/04/25 09:12 01/04/25 10:45 01/04/25 09:12 01/04/25 10:45 01/04/25 09:12 01/04/25 08:00 Narrative Exam Physical Exam General: Awake and in no acute distress. Conversational and non-toxic appearing. HEENT: Normocephalic, atraumatic, mucous membranes moist. Heart: Regular rate and rhythm, no murmurs. Lungs: Clear to auscultation with no wheezing or crackles. Abdomen: Soft, nondistended, nontender, positive bowel sounds. ?No guarding or rebound tenderness. Neurologic: Alert and oriented x1, no gross neurological deficit, and patient able to move all 4 extremities. Extremities: No edema. Skin: No rash or ecchymoses. Objective Labs 01/04/25 08:20 01/04/25 08:20 Labs: Laboratory Results - last 24 hr 01/03/25 01/03/25 01/04/25 21:39 23:55 00:04 WBC 7.3 RBC 3.66 L Hgb 11.2 L Hct 33.6 L MCV 92 MCH 30.6 MCHC 33.3 RDW Std Deviation 48.9 H Plt Count 225 Neut % (Auto) 63 Lymph % (Auto) 24 Woods % (Auto) 8 Eos % (Auto) 3 Baso % (Auto) 1 Neut # (Auto) 4.6 Lymph # (Auto) 1.8 Woods # (Auto) 0.6 Eos # (Auto) 0.2 Baso # (Auto) 0.1 Immature Gran # (Auto) 0.07 H Absolute Nucleated RBC 0.00 Immature Gran % 1 H Nucleated RBC % 0 VBG pH VBG pCO2 VBG pO2 VBG O2 Sat (Timothy) VBG Base Excess Sodium 136 Potassium 5.2 H Chloride 98 Carbon Dioxide 29.4 Anion Gap 9 BUN 30 H Creatinine 4.1 H* Estim Creat Clear Calc 11.2 L eGFR 11 L* BUN/Creatinine Ratio 7 L Glucose [address] Glu mg/dL Hemoglobin A1c Calculated Osmolality 283 Lactic Acid Calcium 9.4 Corrected Calcium 9.4 Magnesium 2.3 Total Bilirubin 0.4 AST 15 ALT 13 Alkaline Phosphatase 216 H Ammonia < 10 L Troponin I 0.138 H* B-Natriuretic Peptide 427 H Total Protein 6.8 Albumin 4.3 Globulin 2.5 Albumin/Globulin Ratio 1.7 Triglycerides Cholesterol LDL Cholesterol, Calc HDL Cholesterol Cholesterol/HDL Ratio TSH 3.71 Thyroxine (T4) 11.0 H Ur Collection Type Clean Catch Urine Color Yellow Urine Clarity Turbid A Urine pH 6.5 Ur Specific [place] 1.011 Urine Protein 1+ A Urine Glucose (UA) 4+ A Urine Ketones Negative Urine Blood 1+ A Urine Nitrite Negative Urine Bilirubin Negative Urine Urobilinogen (Auto) Negative Ur Leukocyte Esterase Positive Urine RBC 1 Urine WBC 1190 H Ur Squamous Epith Cells 3 Urine Bacteria None Urine Yeast (Budding) Present A Ur Culture Indicated? Yes Salicylates < 3.0 Urine Opiates Screen Negative Urine Fentanyl Screen Negative Ur Barbiturates Screen Negative U Amphetamin/Meth Scrn Negative U Benzodiazepines Scrn Negative U Cocaine Metab Screen Negative U Marijuana (THC) Screen Negative 01/04/25 01/04/25 02:00 08:20 WBC 6.3 RBC 3.59 L Hgb 10.9 L Hct 33.5 L MCV 93 MCH 30.4 MCHC 32.5 RDW Std Deviation 49.8 H Plt Count 197 Neut % (Auto) 52 Lymph % (Auto) 31 Woods % (Auto) 11 Eos % (Auto) 4 Baso % (Auto) 1 Neut # (Auto) 3.3 Lymph # (Auto) 2.0 Woods # (Auto) 0.7 Eos # (Auto) 0.2 Baso # (Auto) 0.1 Immature Gran # (Auto) 0.04 H Absolute Nucleated RBC 0.00 Immature Gran % 1 H Nucleated RBC % 0 VBG pH 7.38 VBG pCO2 50 VBG pO2 34 VBG O2 Sat (Timothy) 64 L VBG Base Excess 4 H Sodium 138 Potassium 4.9 5.2 H Chloride 100 Carbon Dioxide 29.7 Anion Gap 8 BUN 33 H Creatinine 4.3 H* Estim Creat Clear Calc 11.0 L eGFR 11 L* BUN/Creatinine Ratio 8 L Glucose [address] Glu mg/dL 223 H Hemoglobin A1c 9.4 H Calculated Osmolality 283 Lactic Acid 1.3 Calcium 8.7 Corrected Calcium 8.8 Magnesium 2.1 Total Bilirubin 0.4 AST 19 ALT 12 Alkaline Phosphatase 188 H D Ammonia Troponin I 0.138 H* 0.146 H* B-Natriuretic Peptide Total Protein 6.4 Albumin 3.9 Globulin 2.5 Albumin/Globulin Ratio 1.6 Triglycerides 241 H Cholesterol 193 LDL Cholesterol, Calc 111 HDL Cholesterol 34 L Cholesterol/HDL Ratio 5.7 H TSH Thyroxine (T4) Ur Collection Type Urine Color Urine Clarity Urine pH Ur Specific [place] Urine Protein Urine Glucose (UA) Urine Ketones Urine Blood Urine Nitrite Urine Bilirubin Urine Urobilinogen (Auto) Ur Leukocyte Esterase Urine RBC Urine WBC Ur Squamous Epith Cells Urine Bacteria Urine Yeast (Budding) Ur Culture Indicated? Salicylates Urine Opiates Screen Urine Fentanyl Screen Ur Barbiturates Screen U Amphetamin/Meth Scrn U Benzodiazepines Scrn U Cocaine Metab Screen U Marijuana (THC) Screen ABG Interpretation ABG results: 01/04/25 02:00 VBG pH 7.38 VBG pCO2 50 VBG pO2 34 VBG Base Excess 4 H Quality Measures Quality Measures none Advance care planning discussed with:: patient Assessment & Plan Assessment Current Active Medications: Generic Name Dose Route Start Last Admin Trade Name Freq PRN Reason Stop Dose Admin Acetaminophen 650 mg 01/04/25 01:35 Acetaminophen 325 Mg Tablet PO 02/03/25 01:34 Q6H PRN pain and Fever >100.4 Albuterol/Ipratropium 3 ml 01/04/25 02:01 Albuterol/Ipratropium (Duoneb) Rt Angela 3 Ml Nebu INH 02/03/25 02:00 Q4HR PRN SHORTNESS OF BREATH OR WHEEZE Dextrose 25 ml 01/04/25 01:40 01/04/25 05:29 Dextrose 50%-Water Inj 50 Ml Syringe IV 02/03/25 01:39 25 ml Q15MIN PRN Administration BG 50-70 responsive npo pt Dextrose 50 ml 01/04/25 01:40 Dextrose 50%-Water Inj 50 Ml Syringe IV 02/03/25 01:39 Q15MIN PRN BG <50 OR BG <70 & pt unresponsive Glucagon 1 mg 01/04/25 01:40 Glucagon Inj 1 Mg Vial IM Q15MIN PRN BG <70, and no IV access Heparin Sodium (Porcine) 5,000 unit 01/04/25 06:00 01/04/25 05:32 Heparin Sod Inj 5000 Unit/Ml Vial SC 01/18/25 05:59 5,000 unit Q8HR REKHA Administration Heparin Sodium (Porcine) 3,300 unit 01/04/25 10:32 Heparin Sod Inj 1000 Unit/Ml Vial 10 Ml INDWELLCAT 01/18/25 10:31 X1 PRN DIALYSIS Ceftriaxone Sodium/Dextrose 1 gm in 50 mls @ 100 mls/hr 01/04/25 21:00 Rocephin/D5w 1gm Iv Premix IV 01/11/25 20:59 HS REKHA Albumin Human 25 gm in 100 mls @ 100 mls/hr 01/04/25 10:32 Albuminar-25 Ivpb IV PRN PRN DIALYSIS Insulin Human Lispro 0 unit 01/04/25 06:00 01/04/25 05:22 Insulin Lispro (Admelog) 1 Unit/0.01 Ml Unit SC 02/03/25 05:59 Not Given Q6HR REKHA Protocol Ondansetron HCl 4 mg 01/04/25 01:35 Ondansetron Inj 2 Mg/Ml Inj 2 Ml IVP 02/03/25 01:34 Q6H PRN NAUSEA OR VOMITING Protocol Pantoprazole Sodium 40 mg 01/04/25 09:00 01/04/25 08:30 Pantoprazole Inj 40 Mg Vial IVP 02/03/25 08:59 40 mg QDAY REKHA Administration Plan 64-year-old female with past medical history of HFrEF (EF 35 to 40% on 2023), ESRD on hemodialysis, DM2, hypertension, GERD, dementia, and asthma admitted to the hospital on 01/04/2025 for acute encephalopathy likely metabolic in the setting of UTI versus due to her history of dementia. #Acute encephalopathy #UTI #Hx of dementia Patient came in initially with complaints of altered mental status. Patient's who stated that after hemodialysis her blood pressure was low when she started getting more confused. On assessment patient was AO x 3, but was very somnolent. Head CT did not show any hemorrhage, mass effect, or midline shift. DDx could include metabolic encephalopathy in the setting of UTI versus worsening symptoms of patient's dementia versus medication induced UA was positive for signs of esterase and copious amounts of WBC (1190) No fevers or WBC elevation Plan: Continue ceftriaxone 1 g daily Blood and urine cultures ordered, will follow Will continue to hold donepezil. Was evaluated by speech therapy, will be started on cardiac diet Aspiration precautions. #Heart failure with reduced ejection fraction, EF 35 to 40% in 2022 #NSTEMI likely type II Patient does not appear to be in CHF exacerbation at this time BNP was slightly elevated at 427 Last echo was in 2022 and showed an EF of 35 to 40% Troponins were elevated at 0.138 on admission Patient denies any chest pain EKG shows sinus rhythm Plan: Trend troponins until downtrend Follow echocardiogram Daily weights Strict I&O's, Hold off diuresis for now Will continue to monitor Scheduled for dialysis today #ESRD on HD Patient's last hemodialysis was done today Patient's creatinine is currently 4.1 with a BUN of 30 Patient follows with agency director and Nell, but does not know the name Plan: Scheduled to receive hemodialysis today Avoid nephrotoxic agents Renally dose medications Nephrology consulted, appreciate recommendations # Diabetes mellitus type 2, by history Last A1c was in 2022 hemoglobin A1c 9.4 Patient is on 22 units of Tresiba at home Also on sliding scale insulin Plan: Sliding scale insulin Hypoglycemia protocol Will continue to monitor Will hold long-acting insulin, as patient was just resumed on diet. Chronic diseases #GERD #Asthma Protonix DuoNebs as needed Disposition: Patient admitted to telemetry. Currently on IV antibiotics Diet: Was assessed by speech therapy, started on cardiac diet, aspiration precautions GI prophylaxis: protonix IV DVT prophylaxis: heparin subcu Code: Full code Case discussed with Attending Dr. Woodson. Arnold Negrete PGY1 Disclaimer: This note was dictated by speech recognition. Minor errors in research assistant professor may be present due to voice recognition software. Attending Provider Attestation/Addendum Face to face evaluation was performed by me. I have personally seen and examined the patient. I discussed the assessment and plan with the entire medicine team. I reviewed available medical records, imaging studies, laboratory results. I agree with the above subjective data, objective findings, assessment and plan except as corrected by me or noted below Acute encephalopathy, likely combination metabolic and infectious Acute urinary tract infection, likely gram-negative bacilli gram-negative bacteremia End-stage renal disease on hemodialysis Heart failure with reduced ejection fraction - Encephalopathy improving since admission, was considering MRI of brain this can be held for now. Dialysis per nephrology. Continue IV antibiotics ceftriaxone?increase the dose to 2 g daily due to bacteremia. Follow-up blood and urine culture susceptibilities. More than > 30 minutes spent on the encounter
--- NOTE | 2025-01-04 11:11 | PC.RT ---
SS went to meet with pt in HD to complete initial assessment, pt was sleeping and hard to wake up per RN. SS in attempt to complete initial assessment contacted pt Wm Knox [phone], no answer VM left. SS also attempted contacting pt brother Mil Tristan [phone], no answer VM left. SS updated SS, Celsa.
--- NOTE | 2025-01-04 11:34 | PC.SS ---
SS attempted to meet with pt during dialysis session and pt was asleep. SS called , Wm at [phone] but number is disconnected ([phone]). sS called Mil patient's on [phone] but was only able to leave voicemail.
[2025-01-04] MEDS: HEPARIN SOD INJ 1000 UNIT/ML VIAL 10 ML 3300 UNIT INDWELLCAT (12:24)
[2025-01-04] MEDS: SEVELAMER CARBONATE 800 MG TABLET PO ×2 (13:46→16:44)
[2025-01-04 14:33] LABS: Troponin I 0.142 ng/mL (0.0-0.045)
[2025-01-04] MEDS: INSULIN LISPRO (AdmeLOG) 1 UNIT/0.01 ML UNIT SC (20:30)
[2025-01-05] VITALS (27 sets, daily range): BP systolic 118–170; BP diastolic 50–84; PULSE 52–88; RESP 14–97; TEMP 35.7–37.3; O2SAT 96–99; BMI 34.1
--- NOTE | 2025-01-05 01:48 | ECHO_ITS ---
Transthoracic Echo Report Ht (in): 58 Wt (lb): 163 Exam Location: Echo Lab Status: Inpatient Application Chemist: Fay Celestin Indications: Procedure Performed: BP: 158 / 80 HR: 72 Technical Quality: Technically Difficult MEASUREMENTS (Male / Female) Normal Values 2D ECHO LV Diastolic Diameter PLAX 5.6 cm 4.2 - 5.9 / 3.9 - 5.3 cm LV Systolic Diameter PLAX 4.6 cm IVS Diastolic Thickness 1.8 cm 0.6 - 1.0 / 0.6 - 0.9 cm LVPW Diastolic Thickness 1.0 cm 0.6 - 1.0 / 0.6 - 0.9 cm LV Relative Wall Thickness 0.5 LVOT Diameter 1.9 cm Ascending Aorta Diameter 2.5 cm DOPPLER AV Peak Velocity 101.0 cm/s AV Peak Gradient 4.1 mmHg LVOT Peak Velocity 51.1 cm/s LVOT Peak Gradient 1.0 mmHg AV Area Cont Eq pk 1.4 cm? MV Area PHT 4.4 cm? MR Peak Velocity 414.0 cm/s MR Peak Gradient 68.6 mmHg Mitral E Point Velocity 40.7 cm/s Mitral A Point Velocity 94.6 cm/s Mitral E to A Ratio 0.4 LV E' Lateral Velocity 5.0 cm/s Mitral E to LV E' Lateral Ratio 8.1 LV E' Septal Velocity 2.1 cm/s Mitral E to LV E' Septal Ratio 19.7 TR Peak Velocity 297.0 cm/s TR Peak Gradient 35.3 mmHg PV Peak Velocity 97.7 cm/s PV Peak Gradient 3.8 mmHg FINDINGS Left Ventricle The left ventricular cavity size is moderately increased. The left ventricular wall thickness is mildly increased. The left ventricular ejection fraction is moderately decreased, estimated at 30-35there is grade II diastolic dysfunction of the left ventricle (pseudonormal filling pattern). %. Right Ventricle The right ventricle is normal in size and systolic function. The estimated right ventricular systolic pressure, 35 mmHg. RAP 5mmHg. Left Atrium The left atrium is normal by two-dimensional, color flow and Doppler imaging with no structural abnormalities, no thrombus formation present. Right Atrium The right atrium is normal by two-dimensional imaging, color flow and Doppler imaging with no structural abnormalities, no thrombus formation present. Atrial Septum The interatrial septum appears normal with no evidence of a shunt. Aorta The aorta is normal by two-dimensional, color flow and Doppler interrogation. Mitral Valve The mitral valve is normal by two-dimensional, color flow and Doppler interrogation. There is mild mitral regurgitation. Aortic Valve The aortic valve is trileaflet and normal by two-dimensional, color flow and Doppler interrogation. There is no significant aortic valve regurgitation. Tricuspid Valve The tricuspid valve is normal by two-dimensional, color flow and Doppler interrogation. There is trace tricuspid regurgitation. Pulmonic Valve The pulmonic valve is not well visualized. There is no significant pulmonic valve regurgitation. Vessels The pulmonary artery appears normal. The inferior vena cava pulmonary and hepatic veins appear normal. Pericardium The pericardium is normal by two-dimensional imaging. There is no significant pericardial effusion. CONCLUSIONS Indications: HFrEF Mildly dilated LV. Severely diseased LV ejection fraction with an EF of 30 to 35%. Grade 2 diastolic dysfunction. Mild LVH. Multiple regional wall motion abnormalities in the LAD and LCx territory. Normal RV size and function. Mildly dilated RA. Mildly elevated RVSP at 35 to 40 mmHg Trace TR. Mild MR. No pericardial effusion. Gary Hernandez (Electronically Signed) Final Date: 05 January 2025 16:05
[2025-01-05] MEDS: HEPARIN SOD INJ 5000 UNIT/ML VIAL SC ×3 (05:20→21:45)
[2025-01-05 06:56] LABS: Basophils % (Auto) 1 % (0-2.5); Eosinophils # (Auto) 0.2 Thou/mm3 (0.0-0.5); Eosinophils % (Auto) 5 % (0-10); Hematocrit 32.7 % (36.0-46.0); Hemoglobin 10.7 g/dL (12.0-16.0); Immature Granulocytes % (Auto) 1 % (0-0); Immature Granulocytes Auto 0.03 Thou/mm3 (0.00-0.00); Lymphocytes # (Auto) 1.7 Thou/mm3 (1.0-4.8); Lymphocytes % (Auto) 31 % (10-50); Mean Corpuscular HGB Conc 32.7 g/dl (31.0-37.0); Mean Corpuscular Hemoglobin 30.7 pg (25.0-35.0); Mean Corpuscular Volume 94 fL (80-100); Monocytes # (Auto) 0.6 Thou/mm3 (0.0-0.8); Monocytes % (Auto) 11 % (0-12); Neutrophils # (Auto) 2.8 Thou/mm3 (1.8-7.7); Neutrophils % (Auto) 52 % (37-80); Nucleated Red Blood Cell % 0 /100 WBC (0); Platelet Count 201 Thou/mm3 (140-440); Red Blood Count 3.48 Miln/mm3 (4.00-5.20); White Blood Count 5.3 Thou/mm3 (3.6-11.0)
[2025-01-05 07:17] LABS: Alanine Aminotransferase 11 U/L (10-49); Albumin, Serum 3.6 gm/dL (3.4-4.8); Albumin/Globulin Ratio 1.4 (1.2-2.2); Alkaline Phosphatase 164 U/L (46-116); Anion Gap 6 (7-16); Aspartate Amino Transferase 16 U/L (0-34); BUN/Creatinine Ratio 6 Ratio (12-20); Bilirubin,Total 0.4 mg/dL (0.3-1.2); Blood Urea Nitrogen 20 mg/dL (9-23); Calcium 8.6 mg/dL (8.3-10.6); Calcium (Corrected) 8.9 mg/dL (8.5-10.1); Carbon Dioxide 30.8 mMol/L (20.0-31.0); Chloride 96 mMol/L (98-107); Creatinine (Component) 3.5 mg/dL (0.6-1.3); Estimated Creatinine Clearance 13.5 mL/min (>60); Globulin 2.5 gm/dL (2.3-3.5); Glucose 181 mg/dL (74-106); Magnesium 1.9 mg/dL (1.6-2.6); Osmolality,Calculated 273 (275-295); Phosphorous 4.5 mg/dL (2.4-5.1); Potassium 5.9 mMol/L (3.4-5.1); Sodium 133 mMol/L (136-145); Total Protein 6.1 gm/dL (5.7-8.2); eGFR 14 See Note
[2025-01-05] MEDS: SOD POLYSTYRENE SULFON SUSP 15 GM/60 ML BTL 30 GM PO (07:46)
[2025-01-05] MEDS: INSULIN LISPRO (AdmeLOG) 1 UNIT/0.01 ML UNIT SC ×4 (07:46→20:51)
[2025-01-05] MEDS: SEVELAMER CARBONATE 800 MG TABLET PO ×3 (07:47→17:42)
[2025-01-05] MEDS: carVEDILOL 12.5 MG TABLET PO ×2 (08:06→20:37)
[2025-01-05] MEDS: CALCIUM CHLORIDE 10% INJ 10 ML SYRG IV (08:07)
[2025-01-05] MEDS: SENNA TABLET 2 TAB PO (08:45)
[2025-01-05] MEDS: PANTOPRAZOLE 40 MG TABLET PO (08:45)
--- NOTE | 2025-01-05 08:50 | PC.SS ---
Addendum entered by Celsa Matthews 01/05/25 16:13: SS met with pt and provided her with [facility] which contains her appointment time with PCP, Dr. Gwendolyn Smith January 13 at 10am. Pt is agreeable to appointment time. Pt named her , Mil Tristan medical decision maker if she is unable. Original Note: Follow up note: Pt is established with [facility] in [place]. On IV antibiotic. Control potassium. Cultures pending. Pt will return home upon dc.
[2025-01-05] MEDS: Furosemide 40 MG TABLET 80 MG PO ×2 (10:19→17:48)
--- NOTE | 2025-01-05 10:20 | ESPR_ITS ---
<Statement entered by Hank Aggarwal MD - 01/11/25 08:54> I reviewed above note and agree with findings and plans. I have also personally examined the patient with medicine team and went over assessment and plan with medical team including regulatory intern and resident physician. Documentation for date of: 01/05/25 Subjective Subjective Interval history: Patient seen and examined at bedside. Patient is alert and oriented x 3, engaging in conversation, able to answer all questions. Hyperkalemia noted today, was given 5 units insulin Kayexalate, will repeat potassium later today. Patient started on Veltassa daily. Scheduled for hemodialysis by nephrology team. Resumed home dose Coreg and Lasix this morning. Will continue to hold spironolactone and losartan. Blood glucose within target range, will continue to monitor. Patient follows Dr. Adamson web sizer outpatient. Patient is pending urine culture and echocardiogram. Anticipate discharge in next 24 hours once workup is completed and patient is stable. Exam Vital Signs Temp Pulse Resp BP Pulse Ox O2 Del Method 97.2 F 78 14 118/50 L 96 Room Air 01/05/25 08:00 01/05/25 08:06 01/05/25 08:00 01/05/25 08:06 01/05/25 08:00 01/05/25 08:00 Narrative Exam Physical Exam General: Awake and in no acute distress. Conversational and non-toxic appearing. HEENT: Normocephalic, atraumatic, mucous membranes moist. Heart: Regular rate and rhythm, no murmurs. Lungs: Clear to auscultation with no wheezing or crackles. Abdomen: Soft, nondistended, nontender, positive bowel sounds. ?No guarding or rebound tenderness. Neurologic: Alert and oriented x3, no gross neurological deficit, and patient able to move all 4 extremities. Extremities: No edema. Skin: No rash or ecchymoses. Objective Labs 01/05/25 06:30 01/05/25 06:30 Labs: Laboratory Results - last 24 hr 01/04/25 01/05/25 14:04 06:30 WBC 5.3 RBC 3.48 L Hgb 10.7 L Hct 32.7 L MCV 94 MCH 30.7 MCHC 32.7 RDW Std Deviation 49.0 H Plt Count 201 Neut % (Auto) 52 Lymph % (Auto) 31 [place] % (Auto) 11 Eos % (Auto) 5 Baso % (Auto) 1 Neut # (Auto) 2.8 Lymph # (Auto) 1.7 Stanton # (Auto) 0.6 Eos # (Auto) 0.2 Baso # (Auto) 0.0 Immature Gran # (Auto) 0.03 H Absolute Nucleated RBC 0.00 Immature Gran % 1 H Nucleated RBC % 0 Sodium 133 L Potassium 5.9 H D Chloride 96 L Carbon Dioxide 30.8 Anion Gap 6 L BUN 20 Creatinine 3.5 H D Estim Creat Clear Calc 13.5 L eGFR 14 L* BUN/Creatinine Ratio 6 L Glucose 181 H D Calculated Osmolality 273 L Calcium 8.6 Corrected Calcium 8.9 Phosphorus 4.5 Magnesium 1.9 Total Bilirubin 0.4 AST 16 ALT 11 Alkaline Phosphatase 164 H D Troponin I 0.142 H* Total Protein 6.1 Albumin 3.6 Globulin 2.5 Albumin/Globulin Ratio 1.4 ABG Interpretation ABG results: 01/04/25 02:00 VBG pH 7.38 VBG pCO2 50 VBG pO2 34 VBG Base Excess 4 H Quality Measures Quality Measures none Advance care planning discussed with:: patient Assessment & Plan Assessment Current Active Medications: Generic Name Dose Route Start Last Admin Trade Name Freq PRN Reason Stop Dose Admin Acetaminophen 650 mg 01/04/25 01:35 Acetaminophen 325 Mg Tablet PO 02/03/25 01:34 Q6H PRN pain and Fever >100.4 Albuterol/Ipratropium 3 ml 01/04/25 02:01 Albuterol/Ipratropium (Duoneb) Rt Angela 3 Ml Nebu INH 02/03/25 02:00 Q4HR PRN SHORTNESS OF BREATH OR WHEEZE Carvedilol 12.5 mg 01/05/25 09:00 01/05/25 08:06 Carvedilol 12.5 Mg Tablet PO 02/04/25 08:59 12.5 mg BID REKHA Administration Budesonide- 0 ea 01/05/25 21:00 Formoterol [Breyna] PO 02/04/25 20:59 80-4.5 Mcg/Actuation BID REKHA Dextrose 25 ml 01/04/25 01:40 01/04/25 05:29 Dextrose 50%-Water Inj 50 Ml Syringe IV 02/03/25 01:39 25 ml Q15MIN PRN Administration BG 50-70 responsive npo pt Dextrose 50 ml 01/04/25 01:40 Dextrose 50%-Water Inj 50 Ml Syringe IV 02/03/25 01:39 Q15MIN PRN BG <50 OR BG <70 & pt unresponsive Furosemide 80 mg 01/05/25 10:00 Furosemide 40 Mg Tablet PO 02/04/25 09:59 BIDD REKHA Glucagon 1 mg 01/04/25 01:40 Glucagon Inj 1 Mg Vial IM Q15MIN PRN BG <70, and no IV access Heparin Sodium (Porcine) 3,300 unit 01/04/25 10:32 01/04/25 12:24 Heparin Sod Inj 1000 Unit/Ml Vial 10 Ml INDWELLCAT 01/18/25 10:31 3,300 unit X1 PRN Administration DIALYSIS Heparin Sodium (Porcine) 5,000 unit 01/05/25 10:00 Heparin Sod Inj 5000 Unit/Ml Vial SC 01/19/25 09:59 Q12H REKHA Ceftriaxone Sodium/Dextrose 1 gm in 50 mls @ 100 mls/hr 01/04/25 21:00 01/04/25 21:00 Rocephin/D5w 1gm Iv Premix IV 01/11/25 20:59 Infused HS REKHA Infusion Albumin Human 25 gm in 100 mls @ 100 mls/hr 01/04/25 10:32 Albuminar-25 Ivpb IV PRN PRN DIALYSIS Insulin Human Lispro 0 unit 01/04/25 21:00 01/05/25 07:46 Insulin Lispro (Admelog) 1 Unit/0.01 Ml Unit SC 02/03/25 20:59 2 unit ACHS REKHA Administration Protocol Insulin Human Regular 5 unit 01/05/25 10:18 Insulin Hum Regular 1 Unit/0.01 Ml (Per Unit) IV 01/05/25 10:19 X1 ONE Ondansetron HCl 4 mg 01/04/25 01:35 Ondansetron Inj 2 Mg/Ml Inj 2 Ml IVP 02/03/25 01:34 Q6H PRN NAUSEA OR VOMITING Protocol Pantoprazole Sodium 40 mg 01/05/25 09:00 01/05/25 08:45 Pantoprazole 40 Mg Tablet PO 02/04/25 08:59 40 mg QDAY REKHA Administration Protocol Pharmacy Consult 1 each 01/04/25 10:59 Pharmacy Renal Dose Adjustment 1 Ea XX 02/03/25 10:58 PRN PRN CONSULT Sennosides 2 tab 01/05/25 09:00 01/05/25 08:45 Senna Tablet PO 02/04/25 08:59 2 tab QDAY REKHA Administration Protocol Sevelamer Carbonate 800 mg 01/04/25 12:00 01/05/25 07:47 Sevelamer Carbonate 800 Mg Tablet PO 02/03/25 11:59 800 mg TIDWM REKHA Administration Plan Assessment and plan: Summary: Ms. Knox is a 64-year-old Sinhala-speaking female with past medical history of HFrEF (EF 35 to 40% on 2023), ESRD on hemodialysis, DM2, hypertension, GERD, dementia, and asthma admitted to the hospital on 01/04/2025 for acute encephalopathy likely metabolic in the setting of UTI versus due to her history of dementia. #Acute encephalopathy, improving # Urinary tract infection #Hx of dementia Patient came in initially with complaints of altered mental status. Patient's who stated that after hemodialysis her blood pressure was low when she started getting more confused. On assessment patient was AO x 3, but was very somnolent. Head CT did not show any hemorrhage, mass effect, or midline shift. DDx could include metabolic encephalopathy in the setting of UTI versus worsening symptoms of patient's dementia versus medication induced UA was positive for signs of esterase and copious amounts of WBC (1190) No fevers or WBC elevation Plan: Continue ceftriaxone 1 g daily Blood cultures negative for 24 hours, pending urine culture Will continue to hold donepezil. Aspiration precautions. #Heart failure with reduced ejection fraction, EF 35 to 40% in 2022 #NSTEMI likely type II Patient does not appear to be in CHF exacerbation at this time BNP was slightly elevated at 427 Last echo was in 2022 and showed an EF of 35 to 40% Troponins were elevated at 0.138 on admission eventually down trended, peak 0.146 Patient denies any chest pain EKG shows sinus rhythm Follows Dr. Adamson outpatient Plan: Follow echocardiogram Daily weights Strict I&O's, resume home dose Lasix Will continue to monitor Nephrology consulted for dialysis Resumed home dose Coreg, will hold spironolactone and losartan in setting of refractory hyperkalemia. #Refractory hyperkalemia Patient's potassium 5.9 this morning, did receive dialysis yesterday, potassium 5.2 yesterday. Patient is asymptomatic. Plan: Calcium gluconate x 1 IV insulin 5 units x 1 Kayexalate 30 g x 1 Started on Veltassa 8.4 g daily Follow potassium later today. Scheduled for hemodialysis by nephrology today. #ESRD on HD Patient's last hemodialysis was done today Patient's creatinine is currently 4.1 with a BUN of 30 Patient follows with freight claim investigator and Nell, but does not know the name Plan: Scheduled to receive hemodialysis today for hyperkalemia Avoid nephrotoxic agents Renally dose medications Resumed home dose of sevelamer Nephrology consulted, appreciate recommendations # Diabetes mellitus type 2, by history Last A1c was in 2022 hemoglobin A1c 9.4 Patient is on 22 units of Tresiba at home Also on sliding scale insulin Plan: Sliding scale insulin Hypoglycemia protocol Will continue to monitor Will hold long-acting insulin, blood glucose within normal limits. Chronic diseases #GERD #Asthma Protonix p.o. DuoNebs as needed Resumed home inhaler budesonide?formoterol Disposition: Patient admitted to telemetry. Currently on IV antibiotics pending urine culture and echocardiogram Diet: Was assessed by speech therapy, started on cardiac diet, aspiration precautions GI prophylaxis: protonix IV DVT prophylaxis: heparin subcut Code: Full code Case discussed with Attending Dr. Aggarwal. Arnold Negrete PGY1 Disclaimer: This note was dictated by speech recognition. Minor errors in manager environmental services may be present due to voice recognition software.
[2025-01-05] MEDS: INSULIN HUM REGULAR 1 UNIT/0.01 ML (PER UNIT) 5 UNIT IV (10:35)
--- NOTE | 2025-01-05 10:57 | ESPR_ITS ---
Documentation for date of: 01/05/25 Subjective Subjective Interval history: Arely is a 64-year-old female with past medical history of HFrEF (EF 35 to 40% on 2023), ESRD on hemodialysis, DM2, hypertension, GERD, dementia, and asthma who was admitted to [facility] on 01/04/2025 for evaluated of altered mental status. Pt is poor historian at this time but upon chart review, it was noted pt had HD session yesterday which was limited because of hypotension. Her office supervisor is Dr. Castillo and her HD schedule is believed to be MWF. She is unable to answer questions at this time and is very difficult to arouse. ED course: Initially came in hypertensive and afebrile. Initial labs were relevant for hyperkalemia, azotemia, troponin EMEA, elevated BNP, and UA was positive for leukocyte esterase, WBCs, and yeast. Initial imaging included head CT which did not show any acute hemorrhage, mass effect, or midline shift. EKG was also done and showed sinus rhythm. 01/05/2025 Patient examined at bedside. No acute overnight events. Patient is much better in terms of mentation from yesterday. Patient got ultra filtration dialysis yesterday with no fluid removed yesterday. Her office supervisor is Dr. Castillo in which she has been on dialysis for about a year now. She has no complaints at this time. Her white count is 5.3, hemoglobin 10.7, sodium 133, potassium 5.9, chloride 96, bicarb 31, creatinine 3.5, was 181, phosphorus 2.5, magnesium 1.9. 0 urine output. Exam Vital Signs Temp Pulse Resp BP Pulse Ox O2 Del Method 97.2 F 78 14 118/50 L 96 Room Air 01/05/25 08:00 01/05/25 10:19 01/05/25 08:00 01/05/25 10:19 01/05/25 08:00 01/05/25 08:00 Narrative Exam General: AAOx3, obese female HEENT: Moist mucous membranes, conjunctiva clear, EOMI, PERRLA, RIJ PERM CATH Cardiovascular: S1, S2, radial pulses +2 bilat, RRR Pulmonary: CTAB bilat no cough, no wheezing GI: No tenderness to light or deep palpitation, no guarding, rigidity, rebound tenderness or distension Extremities: No presence of trace or pitting edema in lower extremities bilaterally, dorsalis pedis pulses +2 bilaterally Neuro: AAOx3, difficult to arouse, limited neuroexam Psych: Good judgement, thought and behavior Objective Labs 01/05/25 06:30 01/05/25 17:37 Labs: Laboratory Results - last 24 hr 01/04/25 01/05/25 14:04 06:30 WBC 5.3 RBC 3.48 L Hgb 10.7 L Hct 32.7 L MCV 94 MCH 30.7 MCHC 32.7 RDW Std Deviation 49.0 H Plt Count 201 Neut % (Auto) 52 Lymph % (Auto) 31 [place] % (Auto) 11 Eos % (Auto) 5 Baso % (Auto) 1 Neut # (Auto) 2.8 Lymph # (Auto) 1.7 [place] # (Auto) 0.6 Eos # (Auto) 0.2 Baso # (Auto) 0.0 Immature Gran # (Auto) 0.03 H Absolute Nucleated RBC 0.00 Immature Gran % 1 H Nucleated RBC % 0 Sodium 133 L Potassium 5.9 H D Chloride 96 L Carbon Dioxide 30.8 Anion Gap 6 L BUN 20 Creatinine 3.5 H D Estim Creat Clear Calc 13.5 L eGFR 14 L* BUN/Creatinine Ratio 6 L Glucose 181 H D Calculated Osmolality 273 L Calcium 8.6 Corrected Calcium 8.9 Phosphorus 4.5 Magnesium 1.9 Total Bilirubin 0.4 AST 16 ALT 11 Alkaline Phosphatase 164 H D Troponin I 0.142 H* Total Protein 6.1 Albumin 3.6 Globulin 2.5 Albumin/Globulin Ratio 1.4 ABG Interpretation ABG results: 01/04/25 02:00 VBG pH 7.38 VBG pCO2 50 VBG pO2 34 VBG Base Excess 4 H Quality Measures Quality Measures none Advance care planning discussed with:: patient Assessment & Plan Assessment Current Active Medications: Generic Name Dose Route Start Last Admin Trade Name Freq PRN Reason Stop Dose Admin Acetaminophen 650 mg 01/04/25 01:35 Acetaminophen 325 Mg Tablet PO 02/03/25 01:34 Q6H PRN pain and Fever >100.4 Albuterol/Ipratropium 3 ml 01/04/25 02:01 Albuterol/Ipratropium (Duoneb) Rt Angela 3 Ml Nebu INH 02/03/25 02:00 Q4HR PRN SHORTNESS OF BREATH OR WHEEZE Carvedilol 12.5 mg 01/05/25 09:00 01/05/25 08:06 Carvedilol 12.5 Mg Tablet PO 02/04/25 08:59 12.5 mg BID REKHA Administration Budesonide- 0 ea 01/05/25 21:00 Formoterol [Breyna] PO 02/04/25 20:59 80-4.5 Mcg/Actuation BID REKHA Dextrose 25 ml 01/04/25 01:40 01/04/25 05:29 Dextrose 50%-Water Inj 50 Ml Syringe IV 02/03/25 01:39 25 ml Q15MIN PRN Administration BG 50-70 responsive npo pt Dextrose 50 ml 01/04/25 01:40 Dextrose 50%-Water Inj 50 Ml Syringe IV 02/03/25 01:39 Q15MIN PRN BG <50 OR BG <70 & pt unresponsive Epoetin Dwight 10,000 unit 01/05/25 14:30 Epoetin Dwight-Epbx Inj 10,000 Unit/Ml Vial (Esrd) SC 01/05/25 14:31 X1 ONE Furosemide 80 mg 01/05/25 10:00 01/05/25 10:19 Furosemide 40 Mg Tablet PO 02/04/25 09:59 80 mg BIDD REKHA Administration Glucagon 1 mg 01/04/25 01:40 Glucagon Inj 1 Mg Vial IM Q15MIN PRN BG <70, and no IV access Heparin Sodium (Porcine) 3,300 unit 01/04/25 10:32 01/04/25 12:24 Heparin Sod Inj 1000 Unit/Ml Vial 10 Ml INDWELLCAT 01/18/25 10:31 3,300 unit X1 PRN Administration DIALYSIS Heparin Sodium (Porcine) 5,000 unit 01/05/25 10:00 01/05/25 10:20 Heparin Sod Inj 5000 Unit/Ml Vial SC 01/19/25 09:59 5,000 unit Q12H REKHA Administration Ceftriaxone Sodium/Dextrose 1 gm in 50 mls @ 100 mls/hr 01/04/25 21:00 01/04/25 21:00 Rocephin/D5w 1gm Iv Premix IV 01/11/25 20:59 Infused HS REKHA Infusion Albumin Human 25 gm in 100 mls @ 100 mls/hr 01/04/25 10:32 Albuminar-25 Ivpb IV PRN PRN DIALYSIS Insulin Human Lispro 0 unit 01/04/25 21:00 01/05/25 07:46 Insulin Lispro (Admelog) 1 Unit/0.01 Ml Unit SC 02/03/25 20:59 2 unit ACHS REKHA Administration Protocol Ondansetron HCl 4 mg 01/04/25 01:35 Ondansetron Inj 2 Mg/Ml Inj 2 Ml IVP 02/03/25 01:34 Q6H PRN NAUSEA OR VOMITING Protocol Pantoprazole Sodium 40 mg 01/05/25 09:00 01/05/25 08:45 Pantoprazole 40 Mg Tablet PO 02/04/25 08:59 40 mg QDAY REKHA Administration Protocol Patiromer 8.4 gm 01/05/25 10:45 Patiromer Calcium 8.4 Gm Packet (Non-Form) PO 02/04/25 10:44 QDAY [facility] Pharmacy Consult 1 each 01/04/25 10:59 Pharmacy Renal Dose Adjustment 1 Ea XX 02/03/25 10:58 PRN PRN CONSULT Sennosides 2 tab 01/05/25 09:00 01/05/25 08:45 Senna Tablet PO 02/04/25 08:59 2 tab QDAY [facility] Administration Protocol Sevelamer Carbonate 800 mg 01/04/25 12:00 01/05/25 07:47 Sevelamer Carbonate 800 Mg Tablet PO 02/03/25 11:59 800 mg TIDWM [facility] Administration Plan Assessment 64-year-old female with past medical history of HFrEF (EF 35 to 40% on 2023), ESRD on hemodialysis, DM2, hypertension, GERD, dementia, and asthma admitted to the hospital on 01/04/2025 for acute encephalopathy likely metabolic in the setting of UTI versus due to her history of dementia. #ESRD on HD #Metabolic encephalopathy, resolved BUN/Cr 30 and 4.1 respectively Pt appears to be very lethargic at this time Sees Dr. Castillo, nephrology Patient's mentation is much better today, encephalopathy likely related to metabolic encephalopathy due to patient not getting hemodialysis Patient will get fluid removal today as patient just got ultrafiltration yesterday Plan: Avoid nephrotoxic agents Renally dose medications Hemodialysis today with 2 L goal Trend CMP and lytes Sevelamer 800 mg by mouth 3 times daily with meals #UTI #Hx of dementia #Hx of HFrEF (EF 35 to 40% on 2022) #NSTEMI likely type II #Hx of DM2 #GERD #Asthma #Elevated Troponins Above handled by primary hospitalist team Patient seen and care discussed with my attending physician, Dr. Serafin Britt, PGY-1 Attending Provider Attestation/Addendum Patient seen and examined with resident physician Dr. Valera. Note reviewed, agree with findings and recommendations. Patient [facility] to [facility]-Friday[facility] Friday, Friday. Will plan for extra session today to catch up with the schedule. Patient completely back to normal after dialysis yesterday. Patient currently seen on dialysis. Tolerating dialysis without any problems. Hemodialysis for 3 hours, 2K, ultrafiltration 1 L, Epogen 6000, no heparin ordered. Plan of care discussed with the dialysis nurse. Please see dialysis flowsheet for further details.
[2025-01-05 13:54] LABS: Potassium 5.2 mMol/L (3.4-5.1)
[2025-01-05] MEDS: EPOETIN ALFA-EPBX INJ 10,000 UNIT/ML VIAL (ESRD) 10000 UNIT SC (16:36)
[2025-01-05] MEDS: HEPARIN SOD INJ 1000 UNIT/ML VIAL 10 ML 3300 UNIT INDWELLCAT (17:21)
[2025-01-05 18:05] LABS: Alanine Aminotransferase 12 U/L (10-49); Albumin, Serum 3.9 gm/dL (3.4-4.8); Albumin/Globulin Ratio 1.5 (1.2-2.2); Alkaline Phosphatase 175 U/L (46-116); Anion Gap 6 (7-16); Aspartate Amino Transferase 19 U/L (0-34); BUN/Creatinine Ratio 4 Ratio (12-20); Bilirubin,Total 0.5 mg/dL (0.3-1.2); Blood Urea Nitrogen 8 mg/dL (9-23); Calcium 8.8 mg/dL (8.3-10.6); Calcium (Corrected) 8.9 mg/dL (8.5-10.1); Carbon Dioxide 30.4 mMol/L (20.0-31.0); Chloride 100 mMol/L (98-107); Estimated Creatinine Clearance 23.7 mL/min (>60); Globulin 2.6 gm/dL (2.3-3.5); Glucose 171 mg/dL (74-106); Osmolality,Calculated 274 (275-295); Potassium 4.1 mMol/L (3.4-5.1); Sodium 136 mMol/L (136-145); Total Protein 6.5 gm/dL (5.7-8.2); eGFR 27 See Note
[2025-01-05] MEDS: cefTRIAXone/D5w 1gm IV premix 1 GM/50 ML BAG IV (20:36)
[2025-01-06] VITALS (7 sets, daily range): BP systolic 119–136; BP diastolic 43–79; PULSE 76–87; RESP 6–98; TEMP 36.3–37.1; O2SAT 93–98; BMI 35.0
[2025-01-06] MEDS: Magnesium Sulfate 2 GM Ivpb 2 GM/50 ML BAG IV (00:17)
[2025-01-06 05:36] LABS: Basophils % (Auto) 1 % (0-2.5); Eosinophils # (Auto) 0.2 Thou/mm3 (0.0-0.5); Eosinophils % (Auto) 3 % (0-10); Hematocrit 28.9 % (36.0-46.0); Hemoglobin 9.7 g/dL (12.0-16.0); Immature Granulocytes % (Auto) 1 % (0-0); Immature Granulocytes Auto 0.04 Thou/mm3 (0.00-0.00); Lymphocytes # (Auto) 1.6 Thou/mm3 (1.0-4.8); Lymphocytes % (Auto) 30 % (10-50); Mean Corpuscular HGB Conc 33.6 g/dl (31.0-37.0); Mean Corpuscular Hemoglobin 30.9 pg (25.0-35.0); Mean Corpuscular Volume 92 fL (80-100); Monocytes # (Auto) 0.6 Thou/mm3 (0.0-0.8); Monocytes % (Auto) 12 % (0-12); Neutrophils # (Auto) 2.9 Thou/mm3 (1.8-7.7); Neutrophils % (Auto) 54 % (37-80); Nucleated Red Blood Cell % 0 /100 WBC (0); Platelet Count 168 Thou/mm3 (140-440); RDW Standard Deviation 47.7 fL (36.4-46.3); Red Blood Count 3.14 Miln/mm3 (4.00-5.20); White Blood Count 5.3 Thou/mm3 (3.6-11.0)
[2025-01-06] MEDS: Furosemide 40 MG TABLET 80 MG PO (05:50)
[2025-01-06 06:07] LABS: Alanine Aminotransferase 10 U/L (10-49); Albumin, Serum 3.5 gm/dL (3.4-4.8); Albumin/Globulin Ratio 1.5 (1.2-2.2); Alkaline Phosphatase 157 U/L (46-116); Anion Gap 10 (7-16); Aspartate Amino Transferase 16 U/L (0-34); BUN/Creatinine Ratio 4 Ratio (12-20); Bilirubin,Total 0.3 mg/dL (0.3-1.2); Blood Urea Nitrogen 12 mg/dL (9-23); Calcium 8.4 mg/dL (8.3-10.6); Calcium (Corrected) 8.8 mg/dL (8.5-10.1); Chloride 98 mMol/L (98-107); Creatinine (Component) 2.9 mg/dL (0.6-1.3); Estimated Creatinine Clearance 16.6 mL/min (>60); Globulin 2.3 gm/dL (2.3-3.5); Glucose 226 mg/dL (74-106); Magnesium 2.3 mg/dL (1.6-2.6); Osmolality,Calculated 276 (275-295); Phosphorous 3.1 mg/dL (2.4-5.1); Potassium 4.1 mMol/L (3.4-5.1); Sodium 135 mMol/L (136-145); Total Protein 5.8 gm/dL (5.7-8.2); eGFR 17 See Note
[2025-01-06] MEDS: INSULIN LISPRO (AdmeLOG) 1 UNIT/0.01 ML UNIT SC ×2 (08:02→12:27)
[2025-01-06] MEDS: SENNA TABLET 2 TAB PO (08:03)
[2025-01-06] MEDS: carVEDILOL 12.5 MG TABLET PO (08:03)
[2025-01-06] MEDS: SEVELAMER CARBONATE 800 MG TABLET PO ×2 (08:03→12:28)
[2025-01-06] MEDS: PANTOPRAZOLE 40 MG TABLET PO (08:03)
[2025-01-06] MEDS: PATIROMER CALCIUM 8.4 GM PACKET (NON-FORM) PO (08:04)
[2025-01-06] MEDS: INSULIN GLARGINE (Lantus) 5 UNIT/0.05 ML (PER 5 UNITS) 10 UNIT SC (09:28)
[2025-01-06] MEDS: HEPARIN SOD INJ 5000 UNIT/ML VIAL SC (09:28)
[2025-01-06] MEDS: POLYETHYLENE GLYCOL 17 GM PACKET 34 GM PO (09:28)
--- NOTE | 2025-01-06 11:21 | ESDS_ITS ---
<Statement entered by Hank Aggarwal MD - 01/11/25 08:56> I reviewed above note and agree with findings and plans. I have also personally examined the patient with medicine team and went over assessment and plan with medical team including internet sales associate and resident physician. Planned Discharge Date 01/06/25 DS: Providers Provider Date of admission: 01/04/25 01:35 Primary care physician: Physician No Primary/Family Admitting Provider: Troy Chan MD Attending Provider on Admission: Hank Aggarwal MD Consults: 01/04/25 02:30 Consult to Nephrology Routine Comment: Consulting Provider: Cara Betancourt 01/04/25 09:05 Referral Speech Therapy Routine Comment: Attending Provider on DC: Hank Aggarwal MD Discharging Provider: Hank Aggarwal MD Anticipated date of discharge: 01/06/25 DS: Diagnosis Problem List Completed Was Problem List Reviewed/Reconciled?: Yes Hospital Course Hospital Course Hospital course: Hospital Course: Ms. Knox is a 64-year-old female with past medical history of HFrEF (EF 30 to 35%, follows Dr Adamson), ESRD on hemodialysis (Follows Dr Castillo), Diabetes Mellitus, Hypertension, GERD, Dementia, and Asthma who presented to [facility] ED on 01/03/2025 with chief complaint of altered mental status. Patient was admitted to the hospital for acute encephalopathy likely metabolic in the setting of UTI, patient eventually reported that she missed a dialysis session. Patient recieved dialysis on 01/04 and 01/05, was started on IV antibiotics, eventually her mentation improved. With the progression of hospital course patient's mentation improved, hyperkalemia improved and mentation returned back to baseline. Echocardiogram showed severely diseased LV ejection fraction with an EF of 30 to 35%, patient already established with farm machinery assembler outpatient, was informed to follow up. Further plan is to discharge patient home on PO antibiotics, hold losartan and jardiance for a week and follow up with PCP in 1 week and repeat BMP. Patient informed to stop spironolactone. Patient is stable for discharge, responded well to hospital treatment. Recommendations: Continue Cefdinir every 48 hours, 5 more doses, after dialysis on dialysis days to complete treatment for urinary tract infection. Stop spironolactone because of hyperkalemia, hold losartan and Jardiance before resuming check with PCP Repeat BMP in 1 week and follow-up with wire mill rover. Recommend anemia workup outpatient. Follow-up with cardiology outpatient titrate medications for heart failure with reduced ejection fraction. Discharge Diagnosis: #Acute encephalopathy #Urinary tract infection, E Coli UTI #Dementia, by history #Heart failure with reduced ejection fraction, EF 30-35% #NSTEMI likely type II #Refractory hyperkalemia #ESRD on HD #Diabetes mellitus type 2, by history #GERD #Asthma Case discussed with Attending Dr. Aggarwal. Arnold Negrete PGY1 Disclaimer: This note was dictated by speech recognition. Minor errors in physicist astrophysics may be present due to voice recognition software. Time Spent with Patient Time attestation: Total time spent providing and/or coordinating discharge services: Time spent: Greater than 30 minutes Exam Vital Signs Temp Pulse Resp BP Pulse Ox O2 Del Method 97.6 F 79 20 125/60 93 L Room Air 01/06/25 08:00 01/06/25 08:03 01/06/25 08:00 01/06/25 08:03 01/06/25 08:00 01/06/25 08:00 Narrative Exam Physical Exam General: Awake and in no acute distress. Conversational and non-toxic appearing. HEENT: Normocephalic, atraumatic, mucous membranes moist. Heart: Regular rate and rhythm, no murmurs. Lungs: Clear to auscultation with no wheezing or crackles. Abdomen: Soft, nondistended, nontender, positive bowel sounds.?No guarding or rebound tenderness. Neurologic: Alert and oriented x3, no gross neurological deficit, and patient able to move all 4 extremities. Extremities: No edema. Skin: No rash or ecchymoses. Discharge Plan Plan Patient Disposition: HOME (Self Care) Patient condition on transfer: Stable Care Plan Goals: Continue Cefdinir every 48 hours, 5 more doses, after dialysis on dialysis days to complete treatment for urinary tract infection. Stop spironolactone because of hyperkalemia, hold losartan and Jardiance before resuming check with PCP Continue all other home medications, follow-up outpatient with PCP in 1 week. Repeat renal panel patient in 1 week and follow-up with wire mill rover. Recommend anemia workup outpatient. Follow-up with cardiology outpatient titrate medications for heart failure with reduced ejection fraction. Return to emergency department if symptoms worsen. Follow up appointment with Dr. Gwendolyn Smith from [facility] in [place] on December at 10am Prescriptions/Referrals Prescriptions/Med Rec: New cefdinir 300 mg capsule 300 mg PO Q48H Qty: 5 0RF Rx Instructions: After Dialysis on dialysis days Continued donepezil 5 mg Tablet 5 mg PO HS pantoprazole 40 mg tablet,delayed release (DR/EC) 40 mg PO QDAY Qty: 30 0RF insulin degludec [Tresiba FlexTouch U-100] 100 unit/mL (3 mL) insulin pen 22 unit SUBCUT .AM insulin lispro [Humalog KwikPen Insulin] 100 unit/mL insulin pen 1 sliding scale dose SUBCUT BID furosemide 80 mg tablet 80 mg PO BID Patient Comments: TAKE 1 TABLET BY MOUTH TWICE A DAY AT 8AM AND AT 2PM carvedilol 12.5 mg tablet 12.5 mg PO BID Patient Comments: TAKE 1 TABLET BY MOUTH TWICE A DAY budesonide-formoterol [Breyna] 80-4.5 mcg/actuation HFA aerosol inhaler 2 puff INHALATION BID PRN (Reason: shortness of breath or wheezing) Patient Comments: INHALE 2 PUFFS BY MOUTH TWICE A DAY (IN THE MORNING AND THE EVENING) sevelamer carbonate 800 mg tablet 800 mg PO TIDWMEAL Patient Comments: TAKE 1 TABLET BY MOUTH THREE TIMES A DAY WITH MEALS loratadine [Alavert] 10 mg tablet,disintegrating 10 mg PO QDAY sennosides [senna] 8.6 mg tablet 8.6 mg PO QDAY PRN (Reason: constipation) Held Jardiance 25 mg tablet 25 mg PO QAM Hold Instructions: Resume on 01/13/25. Complete UTI treatment and resume with PCP. losartan 25 mg tablet 25 mg PO DAILY Hold Instructions: Resume on 01/13/25. Follow up renal panel in 1 week, check with PCP before resuming. Patient Comments: TAKE 1 TABLET BY MOUTH EVERY DAY Discontinued spironolactone 25 mg tablet 25 mg PO QAM Patient Comments: TAKE 1 TABLET BY MOUTH EVERY DAY Referrals: German Castillo MD [Physician] - Álvaro Adamson MD [Referring Provider] - No Primary/Family,Physician [Primary Care Provider] - Outpatient Orders (i.e. Home Health, Labs, Imaging): Basic Metabolic Panel (Routine) Timeframe: 2 Weeks Location: Determined by Patient Ordered By: Arnold Negrete Patient/Caregiver Discharge Instructions Discharge Activity: activity as tolerated Education Materials: What Is Heart Failure, Urinary Tract Infections in Women, Understanding Urinary Tract ..., Hemodialysis, Kidney Disease Reducing Potassium Print Language: [place] Stand Alone Forms: Anh Award Info., Patient Portal Info Letter Discharge Order Discharge Orders: Discharge (Routine); Ordered 01/06/25 Ordered By: Arnold Negrete Quality Discharge Quality Measures VTE prophylaxis
--- NOTE | 2025-01-06 15:27 | PD.RESPRO ---
Documentation for date of: 01/06/25 Subjective Subjective Interval history: Arely is a 64-year-old female with past medical history of HFrEF (EF 35 to 40% on 2023), ESRD on hemodialysis, DM2, hypertension, GERD, dementia, and asthma who was admitted to [facility] on 01/04/2025 for evaluated of altered mental status. Pt is poor historian at this time but upon chart review, it was noted pt had HD session yesterday which was limited because of hypotension. Her plisse machine operator helper is Dr. Castillo and her HD schedule is believed to be MWF. She is unable to answer questions at this time and is very difficult to arouse. ED course: Initially came in hypertensive and afebrile. Initial labs were relevant for hyperkalemia, azotemia, troponin EMEA, elevated BNP, and UA was positive for leukocyte esterase, WBCs, and yeast. Initial imaging included head CT which did not show any acute hemorrhage, mass effect, or midline shift. EKG was also done and showed sinus rhythm. 01/05/2025 Patient examined at bedside. No acute overnight events. Patient is much better in terms of mentation from yesterday. Patient got ultra filtration dialysis yesterday with no fluid removed yesterday. Her plisse machine operator helper is Dr. Castillo in which she has been on dialysis for about a year now. She has no complaints at this time. Her white count is 5.3, hemoglobin 10.7, sodium 133, potassium 5.9, chloride 96, bicarb 31, creatinine 3.5, was 181, phosphorus 2.5, magnesium 1.9. 0 urine output. 01/06/2025: Patient examined at bedside today. No acute overnight events. Patient reports he is feeling well and is ready to go home. Patient will continue seeing her plisse machine operator helper, Dr. Castillo. We spoke with the patient and it is believed that patient missed dialysis for 5 days. The reason she said she missed dialysis was because she was sick. Her sodium today is 135, potassium 4.1, bicarb 27, BUN/creatinine 12 and 2.9 respectively, glucose 226, white count 5, hemoglobin 9.7, urine output 0 L, phosphorus 3.1, magnesium 2.3, calcium 8.8. Exam Vital Signs Temp Pulse Resp BP Pulse Ox O2 Del Method 97.3 F 76 20 119/71 95 Room Air 01/06/25 12:00 01/06/25 12:00 01/06/25 12:00 01/06/25 12:00 01/06/25 12:00 01/06/25 12:00 Narrative Exam General: AAOx3, obese female HEENT: Moist mucous membranes, conjunctiva clear, EOMI, PERRLA, RIJ PERM CATH Cardiovascular: S1, S2, radial pulses +2 bilat, RRR Pulmonary: CTAB bilat no cough, no wheezing GI: No tenderness to light or deep palpitation, no guarding, rigidity, rebound tenderness or distension Extremities: No presence of trace or pitting edema in lower extremities bilaterally, dorsalis pedis pulses +2 bilaterally Neuro: AAOx3, difficult to arouse, limited neuroexam Psych: Good judgement, thought and behavior Objective Labs 01/06/25 04:40 01/06/25 04:40 Labs: Laboratory Results - last 24 hr 01/05/25 01/06/25 17:37 04:40 WBC 5.3 RBC 3.14 L Hgb 9.7 L Hct 28.9 L MCV 92 MCH 30.9 MCHC 33.6 RDW Std Deviation 47.7 H Plt Count 168 D Neut % (Auto) 54 Lymph % (Auto) 30 Roosevelt % (Auto) 12 Eos % (Auto) 3 Baso % (Auto) 1 Neut # (Auto) 2.9 Lymph # (Auto) 1.6 Roosevelt # (Auto) 0.6 Eos # (Auto) 0.2 Baso # (Auto) 0.0 Immature Gran # (Auto) 0.04 H Absolute Nucleated RBC 0.00 Immature Gran % 1 H Nucleated RBC % 0 Sodium 136 135 L Potassium 4.1 D 4.1 Chloride 100 98 Carbon Dioxide 30.4 27.0 Anion Gap 6 L 10 BUN 8 L 12 Creatinine 2.0 H D 2.9 H D Estim Creat Clear Calc 23.7 L 16.6 L eGFR 27 L 17 L BUN/Creatinine Ratio 4 L 4 L Glucose 171 H 226 H D Calculated Osmolality 274 L 276 Calcium 8.8 8.4 Corrected Calcium 8.9 8.8 Phosphorus 3.1 Magnesium 2.3 Total Bilirubin 0.5 0.3 AST 19 16 ALT 12 10 Alkaline Phosphatase 175 H 157 H Total Protein 6.5 5.8 Albumin 3.9 3.5 Globulin 2.6 2.3 Albumin/Globulin Ratio 1.5 1.5 ABG Interpretation ABG results: 01/04/25 02:00 VBG pH 7.38 VBG pCO2 50 VBG pO2 34 VBG Base Excess 4 H Quality Measures Quality Measures none Advance care planning discussed with:: patient Assessment & Plan Assessment Current Active Medications: Generic Name Dose Route Start Last Admin Trade Name Frechanell PRN Reason Stop Dose Admin Acetaminophen 650 mg 01/04/25 01:35 Acetaminophen 325 Mg Tablet PO 02/03/25 01:34 Q6H PRN pain and Fever >100.4 Albuterol/Ipratropium 3 ml 01/04/25 02:01 Albuterol/Ipratropium (Duoneb) Rt Angela 3 Ml Nebu INH 02/03/25 02:00 Q4HR PRN SHORTNESS OF BREATH OR WHEEZE Carvedilol 12.5 mg 01/05/25 09:00 01/05/25 08:06 Carvedilol 12.5 Mg Tablet PO 02/04/25 08:59 12.5 mg BID REKHA Administration Budesonide- 0 ea 01/05/25 21:00 Formoterol [Breyna] PO 02/04/25 20:59 80-4.5 Mcg/Actuation BID REKHA Dextrose 25 ml 01/04/25 01:40 01/04/25 05:29 Dextrose 50%-Water Inj 50 Ml Syringe IV 02/03/25 01:39 25 ml Q15MIN PRN Administration BG 50-70 responsive npo pt Dextrose 50 ml 01/04/25 01:40 Dextrose 50%-Water Inj 50 Ml Syringe IV 02/03/25 01:39 Q15MIN PRN BG <50 OR BG <70 & pt unresponsive Epoetin Dwight 10,000 unit 01/05/25 14:30 Epoetin Dwight-Epbx Inj 10,000 Unit/Ml Vial (Esrd) SC 01/05/25 14:31 X1 ONE Furosemide 80 mg 01/05/25 10:00 01/05/25 10:19 Furosemide 40 Mg Tablet PO 02/04/25 09:59 80 mg BIDD REKHA Administration Glucagon 1 mg 01/04/25 01:40 Glucagon Inj 1 Mg Vial IM Q15MIN PRN BG <70, and no IV access Heparin Sodium (Porcine) 3,300 unit 01/04/25 10:32 01/04/25 12:24 Heparin Sod Inj 1000 Unit/Ml Vial 10 Ml INDWELLCAT 01/18/25 10:31 3,300 unit X1 PRN Administration DIALYSIS Heparin Sodium (Porcine) 5,000 unit 01/05/25 10:00 01/05/25 10:20 Heparin Sod Inj 5000 Unit/Ml Vial SC 01/19/25 09:59 5,000 unit Q12H REKHA Administration Ceftriaxone Sodium/Dextrose 1 gm in 50 mls @ 100 mls/hr 01/04/25 21:00 01/04/25 21:00 Rocephin/D5w 1gm Iv Premix IV 01/11/25 20:59 Infused HS REKHA Infusion Albumin Human 25 gm in 100 mls @ 100 mls/hr 01/04/25 10:32 Albuminar-25 Ivpb IV PRN PRN DIALYSIS Insulin Human Lispro 0 unit 01/04/25 21:00 01/05/25 07:46 Insulin Lispro (Admelog) 1 Unit/0.01 Ml Unit SC 02/03/25 20:59 2 unit ACHS REKHA Administration Protocol Ondansetron HCl 4 mg 01/04/25 01:35 Ondansetron Inj 2 Mg/Ml Inj 2 Ml IVP 02/03/25 01:34 Q6H PRN NAUSEA OR VOMITING Protocol Pantoprazole Sodium 40 mg 01/05/25 09:00 01/05/25 08:45 Pantoprazole 40 Mg Tablet PO 02/04/25 08:59 40 mg QDAY REKHA Administration Protocol Patiromer 8.4 gm 01/05/25 10:45 Patiromer Calcium 8.4 Gm Packet (Non-Form) PO 02/04/25 10:44 QDAY [facility] Pharmacy Consult 1 each 01/04/25 10:59 Pharmacy Renal Dose Adjustment 1 Ea XX 02/03/25 10:58 PRN PRN CONSULT Sennosides 2 tab 01/05/25 09:00 01/05/25 08:45 Senna Tablet PO 02/04/25 08:59 2 tab QDAY REKHA Administration Protocol Sevelamer Carbonate 800 mg 01/04/25 12:00 01/05/25 07:47 Sevelamer Carbonate 800 Mg Tablet PO 02/03/25 11:59 800 mg TIDWM REKHA Administration Plan Assessment 64-year-old female with past medical history of HFrEF (EF 35 to 40% on 2023), ESRD on hemodialysis, DM2, hypertension, GERD, dementia, and asthma admitted to the hospital on 01/04/2025 for acute encephalopathy likely metabolic in the setting of UTI versus due to her history of dementia. #ESRD on HD #Metabolic encephalopathy, resolved Sees Dr. Castillo, nephrology Patient's mentation is much better today, encephalopathy likely related to metabolic encephalopathy due to patient not getting hemodialysis Patient will get fluid removal today as patient just got ultrafiltration yesterday 01/06/2025: Patient got echo done yesterday which showed HFrEF EF 30%, grade 2 diastolic dysfunction Patient from a nephrology standpoint will continue with dialysis with her plisse machine operator helper Patient will likely be discharged to Plan: Avoid nephrotoxic agents Renally dose medications Hemodialysis today with 2 L goal Trend CMP and lytes Sevelamer 800 mg by mouth 3 times daily with meals #UTI #Hx of dementia #Hx of HFrEF (EF 35 to 40% on 2022) #NSTEMI likely type II #Hx of DM2 #GERD #Asthma #Elevated Troponins Above handled by primary hospitalist team Patient seen and care discussed with my attending physician, Dr. Serafin Britt, PGY-1 Attending Provider Attestation/Addendum Patient seen and examined with resident physician Dr. Valera. Note reviewed, agree with findings and recommendations. Patient currently seen in telemetry. Continue dialysis sessions feels back to self. Emphasized compliance with treatments. Renal king stable for discharge.
== END 2025-01-06 14:15 | disposition home or self-care (01) | DRG 689 ==
LOC: SERX 01-04 01:05 → SERHOLD 01-04 02:16 → S2NX 01-04 04:08
PROVIDERS: Internal Medicine; Physician Assistant Medical; Admitting Provider Student in an Organized Health Care Education/Training Program; Emergency Provider Emergency Medicine; Visit Provider Internal Medicine
DX: N39.0 Urinary tract infection, site not specified (principal); G93.41 Metabolic encephalopathy; N18.6 End stage renal disease; I21.A1 Myocardial infarction type 2; I13.2 Hypertensive heart and chronic kidney disease with heart failure and with stage 5 chronic kidney disease, or end stage renal disease; I50.22 Chronic systolic (congestive) heart failure; K21.9 Gastro-esophageal reflux disease without esophagitis; J45.909 Unspecified asthma, uncomplicated; E87.5 Hyperkalemia; B96.20 Unspecified Escherichia coli [E. coli] as the cause of diseases classified elsewhere; F03.90 Unspecified dementia, unspecified severity, without behavioral disturbance, psychotic disturbance, mood disturbance, and anxiety; E11.22 Type 2 diabetes mellitus with diabetic chronic kidney disease; I95.3 Hypotension of hemodialysis; Z99.2 Dependence on renal dialysis; Z86.73 Personal history of transient ischemic attack (TIA), and cerebral infarction without residual deficits; Z88.5 Allergy status to narcotic agent; Z79.4 Long term (current) use of insulin; Z79.899 Other long term (current) drug therapy
CPT/HCPCS: 36415; 70450; 80053; 80061; 80307; 80329; 81001; 82140; 82803; 83036; 83605; 83735; 83880; 84100; 84132; 84436; 84443; 84484; 85025; 87040; 87077; 87081; 87086; 87186; 92610; 93005; 93306; 96365; 99291; J0696; J1643; J1644; J1815; J2470; J3475; Q5105; A9270; G0480

== ENCOUNTER 2025-02-28 22:38 | Emergency (ER) | payer MEDICARE, MEDICAID, SELFPAY ==
--- NOTE | 2025-02-28 22:43 | EKG_ITS ---
[facility] Test Date: 2025-02-28 Pat Name: ALBERTA JUAREZ Department: Room: - Gender: Female Package Handler: : [id number] Requested By: ED Temporary Provider Order Number: [id number] Reading MD: ED Temporary Provider Measurements Intervals [place] Rate: 80 P: 26 MO: 174 QRS: -31 QRSD: 113 T: 146 QT: 411 QTc: 474 Interpretive Statements SINUS RHYTHM LEFT AXIS DEVIATION [QRS AXIS < -30] LEFT VENTRICULAR HYPERTROPHY AND ST-T CHANGE [VOLTAGE CRITERIA PLUS ST/T ABNORMALITY] POSSIBLE ANTERIOR MYOCARDIAL INFARCTION , PROBABLY OLD [30 ms Q WAVE IN V3/V4, OR R < 0.2 mV IN V4] Compared to ECG 01/03/2025 21:54:58 Myocardial infarct finding now present ST (T wave) deviation still present /store/S0/[id number]/ecg/[id number].pdf
[2025-02-28 22:50] VITALS: BP 160/58; PULSE 81; RESP 19; TEMP 37.2; O2SAT 97
--- NOTE | 2025-02-28 23:37 | XR_ITS ---
Examination: PA lateral chest 2 views TECHNIQUE: Upright PA and lateral chest 2 views Date and time: February 28, 2025 at 1147 hours Comparison May 19, 2024 INDICATIONS: Chest pain today FINDINGS: Mild larger cardiac contour Mild vascular congestion Suspicious for early pneumonia right base Right internal jugular dialysis catheter tip right atrium IMPRESSION: Mild vascular congestion Suspicious for early pneumonia right base, clinical correlation advised
[2025-03-01 00:27] LABS: Basophils # (Auto) 0.0 Thou/mm3 (0.0-0.2); Basophils % (Auto) 1 % (0-2.5); Eosinophils # (Auto) 0.1 Thou/mm3 (0.0-0.5); Eosinophils % (Auto) 1 % (0-10); Hematocrit 33.0 % (36.0-46.0); Hemoglobin 10.7 g/dL (12.0-16.0); Immature Granulocytes Auto 0.03 Thou/mm3 (0.00-0.00); Lymphocytes # (Auto) 1.0 Thou/mm3 (1.0-4.8); Lymphocytes % (Auto) 13 % (10-50); Mean Corpuscular HGB Conc 32.4 g/dl (31.0-37.0); Mean Corpuscular Hemoglobin 30.6 pg (25.0-35.0); Mean Corpuscular Volume 94 fL (80-100); Monocytes # (Auto) 0.6 Thou/mm3 (0.0-0.8); Monocytes % (Auto) 8 % (0-12); Neutrophils # (Auto) 6.1 Thou/mm3 (1.8-7.7); Neutrophils % (Auto) 77 % (37-80); Nucleated Red Blood Cell # 0.00 Thou/mm3 (0.00-0.00); Nucleated Red Blood Cell % 0 /100 WBC (0); Platelet Count 185 Thou/mm3 (140-440); RDW Standard Deviation 47.5 fL (36.4-46.3); Red Blood Count 3.50 Miln/mm3 (4.00-5.20); White Blood Count 7.9 Thou/mm3 (3.6-11.0)
[2025-03-01 00:44] LABS: B-Type Natriuretic Peptide 530 pg/mL (0-100)
[2025-03-01 00:45] LABS: Alanine Aminotransferase 16 U/L (10-49); Albumin, Serum 4.1 gm/dL (3.4-4.8); Albumin/Globulin Ratio 1.5 (1.2-2.2); Alkaline Phosphatase 195 U/L (46-116); Anion Gap 5 (7-16); Aspartate Amino Transferase 20 U/L (0-34); BUN/Creatinine Ratio 6 Ratio (12-20); Bilirubin,Total 0.4 mg/dL (0.3-1.2); Blood Urea Nitrogen 22 mg/dL (9-23); Calcium 9.2 mg/dL (8.3-10.6); Calcium (Corrected) 9.2 mg/dL (8.5-10.1); Carbon Dioxide 29.2 mMol/L (20.0-31.0); Chloride 97 mMol/L (98-107); Creatinine (Component) 3.8 mg/dL (0.6-1.3); Globulin 2.7 gm/dL (2.3-3.5); Glucose 388 mg/dL (74-106); Osmolality,Calculated 281 (275-295); Sodium 131 mMol/L (136-145); Total Protein 6.8 gm/dL (5.7-8.2); eGFR 13 See Note
[2025-03-01 00:47] LABS: Potassium 6.0 mMol/L (3.4-5.1); Troponin I 0.141 ng/mL (0.0-0.045)
--- NOTE | 2025-03-01 02:27 | EDNOTE_ITS ---
ED General RME/HPI General Chief complaint: General Adult/Misc Complain Stated complaint: HIGH BP, CP, BILATERAL EAR PAIN Time Seen by Provider: 03/01/25 01:13 Arrival date/time: 02/28/25 22:38 RME / HPI RME / HPI narrative: Dr. Maharaj?s Main ED Evaluation: 64yo female presenting with intermittent left precordial chest pain described as an aching sensation with the most recent episode being earlier today. Each episodes lasts up to 1 hour. She does have mild shortness of breath. Denies N/V, palpitations, or near syncope. No pleuritic or exertional component. 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 PMH includes cardiomyopathy, asthma, IDDM, HTN, ESRD. PSH noncontributory. Social history is no tobacco, alcohol or illicit drug use. Related Data Home Medications ?Medication ?Instructions ?Recorded ?Confirmed donepezil 5 mg tablet 5 mg PO HS 12/16/22 01/04/25 losartan 25 mg tablet 25 mg PO DAILY 07/22/2312/19 Held on 01/06/25. Instructions: Resume on 01/13/25. Follow up renal panel in 1 week, check with PCP before resuming. budesonide-formoterol HFA 80 2 puff inhalation BID PRN 01/04/25 01/04/25 mcg-4.5 mcg/actuation aerosol shortness of breath or w heezing inhaler (Breyna) carvedilol 12.5 mg tablet 12.5 mg PO BID 01/04/2512/19 empagliflozin 25 mg tablet 25 mg PO QAM 01/04/2501/04 (Jardiance) Held on 01/06/25. Instructions: Resume on 01/13/25. Complete UTI treatment and resume with PCP. furosemide 80 mg tablet 80 mg PO BID 01/04/25 insulin degludec 100 unit/mL (3 22 unit subcut .AM 01/04/25 mL) subcutaneous pen (Tresiba FlexTouch U-100 insulin) insulin lispro 100 unit/mL 1 sliding scale dose subcut BID 01/04/25 01/04/25 subcutaneous pen (Humalog KwikPen (U-100) Insulin) loratadine 10 mg disintegrating 10 mg PO QDAY 01/04/25 01/04/25 tablet (Alavert) sennosides 8.6 mg tablet (senna) 8.6 mg PO QDAY PRN co nstipation 01/04/25 01/04/25 sevelamer carbonate 800 mg tablet 800 mg PO TIDWMEAL 0 01/04/25 01/04/25 Previous Rx's ?Medication ?Instructions ?Recorded pantoprazole 40 mg tablet,delayed 40 mg PO QDAY #30 ta bs 12/26/22 release cefdinir 300 mg capsule 300 mg PO Q48H #5 caps 01/06 naproxen 250 mg tablet 250 mg PO BID PRN pain #6 ta bs 03/01/25 sodium polystyrene sulfonate 15 g PO BID PRN hyperkale suri 03/01/25 #453.6 grams Allergies Allergy/AdvReac Type Severity Reaction Status Date / Time morphine Allergy Severe Agitated Verified 02/28/25 22:39 Review of Systems Review of Systems Systems Reviewed: All systems reviewed, normal except as documented ED Exam Narrative Physical exam: GENERAL APPEARANCE: alert and oriented x 4, chronically-ill appearing, no acute distress VITALS: All vitals were reviewed and the pulse ox is 97% on room air, which is normal according to my interpretation. HEENT: Normocephalic, atraumatic; pupils equal, round, reactive to light; EOMI; mucous membranes pink, moist; oropharynx clear NECK: Supple, JVD noted LUNGS: CTABL; no wheezes, no rales, no rhonchi CHEST: marked tenderness at the left lower parasternal region, no crepitus or step-off HEART: Regular rate, regular rhythm; normal S1, S2; no murmurs ABDOMEN: non distended; soft, no tenderness BACK: no CVA tenderness EXTREMITIES: atraumatic; no edema NEUROLOGIC: awake; alert and oriented x4; cranial nerves II-XII grossly intact; no focal sensory or motor deficits PSYCHIATRIC: appropriate mood and affect SKIN: warm, dry, normal color; no rashes Course Course Course Narrative: CXR is ordered for determining the etiology of chest pain. Quality Measures none Orders Category Date Time Status EKG (ED ONLY) *Do not use* NOW Care 02/28/25 22:43 Completed EKG (ED Only) Stat Exams 02/28/25 22:43 Draft XR chest 2V Stat Exams 02/28/25 23:37 Completed BNP [B-Type Natriuretic Peptide] Stat Lab 02/28/25 23:43 Completed CBC Stat Lab 02/28/25 23:43 Completed CMP [Comprehensive Metabolic Panel] Stat Lab 02/28/25 23:43 Completed Troponin I Stat Lab 02/28/25 23:43 Completed Troponin I Stat Lab 03/01/25 02:26 Completed Ondansetron Inj [Zofran Inj] Med 03/01/25 03:26 Discontinued 4 mg IVP X1 ONE Sod Polystyrene Sulfon Susp [Kayexalate Susp] Med 03/01/25 03:26 Discontinued 15 gm PO X1 ONE Sodium Bicarb 8.4% 50ml Vial* Med 03/01/25 03:26 Discontinued 50 meq IV X1 ONE fentaNYL INJ [Sublimaze Inj] Med 03/01/25 03:26 Discontinued 50 mcg IVP X1 ONE Vital Signs Vital signs: Vital Signs Temperature 98.9 F 02/28/25 22:50 Pulse Rate 81 02/28/25 22:50 Respiratory Rate 19 02/28/25 22:50 Blood Pressure 160/58 H 02/28/25 22:50 Pulse Oximetry (%) 97 02/28/25 22:50 Oxygen Delivery Method Room Air 02/28/25 22:50 Discharge Plan Plan Patient Disposition: HOME (Self Care) Discharge Disposition comment: Stable Prescriptions/Referrals Prescriptions/Med Rec: New sodium polystyrene sulfonate Powder 15 g PO BID PRN (Reason: hyperkalemia) Qty: 453.6 0RF naproxen 250 mg tablet 250 mg PO BID PRN (Reason: pain) Qty: 6 0RF No Action donepezil 5 mg Tablet 5 mg PO HS pantoprazole 40 mg tablet,delayed release (DR/EC) 40 mg PO QDAY Qty: 30 0RF insulin degludec [Tresiba FlexTouch U-100] 100 unit/mL (3 mL) insulin pen 22 unit SUBCUT .AM insulin lispro [Humalog KwikPen Insulin] 100 unit/mL insulin pen 1 sliding scale dose SUBCUT BID furosemide 80 mg tablet 80 mg PO BID Patient Comments: TAKE 1 TABLET BY MOUTH TWICE A DAY AT 8AM AND AT 2PM carvedilol 12.5 mg tablet 12.5 mg PO BID Patient Comments: TAKE 1 TABLET BY MOUTH TWICE A DAY budesonide-formoterol [Breyna] 80-4.5 mcg/actuation HFA aerosol inhaler 2 puff INHALATION BID PRN (Reason: shortness of breath or wheezing) Patient Comments: INHALE 2 PUFFS BY MOUTH TWICE A DAY (IN THE MORNING AND THE EVENING) sevelamer carbonate 800 mg tablet 800 mg PO TIDWMEAL Patient Comments: TAKE 1 TABLET BY MOUTH THREE TIMES A DAY WITH MEALS loratadine [Alavert] 10 mg tablet,disintegrating 10 mg PO QDAY sennosides [senna] 8.6 mg tablet 8.6 mg PO QDAY PRN (Reason: constipation) Jardiance 25 mg tablet 25 mg PO QAM cefdinir 300 mg capsule 300 mg PO Q48H Qty: 5 0RF Rx Instructions: After Dialysis on dialysis days losartan 25 mg tablet 25 mg PO DAILY Patient Comments: TAKE 1 TABLET BY MOUTH EVERY DAY Problem List Clinical Impression: Anterior chest wall pain, Hyperkalemia Patient/Caregiver Discharge Instructions Discharge Activity: activity as tolerated Education Materials: ED Chest Wall Pain, Costochondritis, ED Hyperkalemia Additional Instructions: Ice compresses alternate with warm moist heat to the left precordial region. Medication as directed. Follow-up with dialysis on Friday a.m. Return if worsening Print Language: Romanian Stand Alone Forms: Anh Award Info., Patient Portal Info Letter MDM Narrative [facility] hospital course: Scribe Attestation: 03/01/25 - Dina Perry am scribing for and in the presence of Dr. Maharaj. 64yo female presenting with intermittent left precordial chest pain described as an aching sensation with the most recent episode being earlier today. Each episodes lasts up to 1 hour. Please see PE findings. Lab markers demonstrate chronic anemia Hgb 10.7, no thrombocytopenia, and marked elevated K 6.0. Patient treated with Kayexalate, Sodium Bicarbonate, and low dose narcotic analgesics with [id number] relief. EKG without acute ischemic changes. Troponin elevated at 0.14 and on recheck, troponin unchanged at 0.13. CXR shows mild vascular congestion and ?right basilar pneumonia. Patient observed for extended period of time and on re-evaluation, patient is resting comfortably and is considered stable for discharge home. Close follow-up with dialysis recommended and precaution instructions issued. Will administered short course of antibiotics and recommend cool compressed alternating with warm moist compresses to the left costochondral joints. Clinical Information Provided by patient Medical Records Reviewed [facility] (Per chart review, patient was admitted here on 01/03/25 for metabolic encephalopathy.) Meds/Rx Considered, not Ordered None Labs/Rad/Tests considered, not Ordered None Chronic Illness/Social Conditions Add or document further as needed: History of CHF, ESRD on HD, DM, HTN, GERD, dementia, and asthma EKG EKG Interpretation narrative: EKG done at 2249, NSR, rate of 80, LVH with strain (unchanged from previous), no ectopy, left axis deviation, possible anterior [place], no acute ST segment changes, according to my interpretation. Lab Interpretation Labs: interpreted by me Lab(s) interpretation(s): See MDM narrative. Imaging Imaging interpretation: interpreted by ca Radiology reports / interpretation(s): [facility] Report Signed Patient: ALBERTA JUAREZ [facility]. Record#: [id number] Birthdate: 1960 Age/Sex: 64 / F Location: [facility] Attending Dr: Ordering Physician: Temporary Provider,ED Date of Service: 02/28/25 Procedure(s): XR chest 2V Accession Number(s): [id number] cc: Francisco Javier Cruz MD; Temporary Provider,ED ~ Examination: PA lateral chest 2 views TECHNIQUE: Upright PA and lateral chest 2 views Date and time: February 28, 2025 at 1147 hours Comparison May 19, 2024 INDICATIONS: Chest pain today FINDINGS: Mild larger cardiac contour Mild vascular congestion Suspicious for early pneumonia right base Right internal jugular dialysis catheter tip right atrium IMPRESSION: Mild vascular congestion Suspicious for early pneumonia right base, clinical correlation advised Dictated By: Francisco Javier Cruz MD Signed By: <Electronically signed by Francisco Javier Cruz MD in OV> 03/01/25 0000 Medication Administration(s) Medication Administration History Discontinued Medications Fentanyl Citrate (Fentanyl Cit Inj 50 Mcg/Ml Amp 2ml) 50 mcg IVP X1 ONE Stop: 03/01/25 03:27 Last Admin: 03/01/25 04:02 Dose: 50 mcg Documented By: GERARD Ondansetron HCl (Ondansetron Inj 2 Mg/Ml Inj 2 Ml) 4 mg IVP X1 ONE; Protocol Stop: 03/01/25 03:27 Last Admin: 03/01/25 04:01 Dose: 4 mg Documented By: GERARD Sodium Bicarbonate (Sodium Bicarb Inj 8.4% 1 Meq/Ml 50 Ml Vial) 50 meq IV X1 ONE Stop: 03/01/25 03:27 Last Admin: 03/01/25 04:02 Dose: 50 meq Documented By: GERARD Sodium Polystyrene Sulfonate (Sod Polystyrene Sulfon Susp 15 Gm/60 Ml Btl) 15 gm PO X1 ONE Stop: 03/01/25 03:27 Last Admin: 03/01/25 04:03 Dose: 15 gm Documented By: GERARD see above Diagnosis Differential diagnosis: ACS, STEMI, NSTEMI, atypical chest pain, costochondritis Most likely dx, and/or detailed dx discussion: see clinical impression above Dispositon Disposition: Discharge Home
[2025-03-01 03:05] VITALS: BP 170/66; PULSE 74; RESP 10; O2SAT 99
[2025-03-01 03:06] VITALS: BP 170/66; PULSE 74; RESP 18; TEMP 36.9; O2SAT 98
[2025-03-01 03:12] LABS: Troponin I 0.137 ng/mL (0.0-0.045)
[2025-03-01 04:00] VITALS: BP 173/81; PULSE 73; RESP 22; TEMP 36.8; O2SAT 97
[2025-03-01] MEDS: ONDANSETRON INJ 2 MG/ML INJ 2 ML 4 MG IVP (04:01)
[2025-03-01] MEDS: fentaNYL CIT INJ 50 mCg/ML AMP 2ML IVP (04:02)
[2025-03-01] MEDS: SODIUM BICARB INJ 8.4% 1 mEq/ML 50 ML VIAL 50 MEQ IV (04:02)
[2025-03-01] MEDS: SOD POLYSTYRENE SULFON SUSP 15 GM/60 ML BTL PO (04:03)
[2025-03-01 04:16] VITALS: BMI 34.2
== END 2025-03-01 04:34 | disposition home or self-care (01) ==
LOC: SERX 03-01 06:35
PROVIDERS: Emergency Provider Emergency Medicine
DX: E87.5 Hyperkalemia (principal); R07.89 Other chest pain; I12.0 Hypertensive chronic kidney disease with stage 5 chronic kidney disease or end stage renal disease; N18.6 End stage renal disease; E11.22 Type 2 diabetes mellitus with diabetic chronic kidney disease; J45.909 Unspecified asthma, uncomplicated; I42.9 Cardiomyopathy, unspecified; Z99.2 Dependence on renal dialysis; Z79.4 Long term (current) use of insulin; Z79.84 Long term (current) use of oral hypoglycemic drugs; Z79.899 Other long term (current) drug therapy; Z88.5 Allergy status to narcotic agent
CPT/HCPCS: 36415; 71046; 80053; 83880; 84484; 85025; 93005; 96374; 96375; 99284; J2405; J3010; A9270

== ENCOUNTER 2025-03-19 23:52 | Emergency (ER) | payer MEDICARE, SELFPAY ==
[2025-03-19 23:53] VITALS: BMI 31.3
[2025-03-19 23:59] VITALS: BP 128/66; RESP 18; TEMP 37.1; O2SAT 91
--- NOTE | 2025-03-20 00:07 | XR_ITS ---
Examination: CT abdomen and pelvis without contrast. Coronal 3-D reconstructions. Sagittal 2-D reconstructions. Date and time of exam:March 20, 2025, 0117 hrs., Comparison May 19, 2024. Indications: Bilateral flank pain onset today CTDI: vol (mGy): 12.11 DLP: (mGycm): 747 Technique: Axial images of the abdomen have been obtained, 3 mm slice thickness Intravenous contrast material has not been administered. Low dose protocols were performed. One or more of the following dose reduction techniques were used; automated exposure control, adjustment of the mA and/or KV according to patient size, use of iterative reconstruction technique. Findings: Significant calcification left anterior ascending lesser complex coronary arteries Cirrhosis, liver irregular in contour Absent gallbladder No extrahepatic biliary tract dilatation. No pancreatic or adrenal mass. No renal or ureteral calculi, no hydronephrosis 18 mm fat-containing umbilical hernia Normal appendix No bowel obstruction Colonic diverticulosis, no diverticulitis. Atrophic uterus Urinary bladder intact. Severe osteopenia Advanced degenerative disc disease L3-L4, L5-S1 Impression: Cirrhosis No renal or ureteral calculi, no hydronephrosis Normal appendix
--- NOTE | 2025-03-20 00:07 | PD.EDRME ---
Rapid Medical Screening Exam RME Arrival date/time: 03/19/25 23:52 This is a case of 64-year-old female with no medical history came in in the emergency room due to bilateral flank pain radiating to the abdomen for 3 days associated with nausea vomiting persistence of the symptoms thus patient decided to sought consult here in the emergency room Chief Complaint: Back Pain/Injury Time Seen by Provider: 03/20/25 00:07 Vital signs: Vital Signs Temperature 98.7 F 03/19/25 23:59 Respiratory Rate 18 03/19/25 23:59 Blood Pressure 128/66 03/19/25 23:59 Pulse Oximetry (%) 91 L 03/19/25 23:59 Oxygen Delivery Method Room Air 03/19/25 23:59
[2025-03-20 00:45] LABS: Basophils # (Auto) 0.0 Thou/mm3 (0.0-0.2); Basophils % (Auto) 1 % (0-2.5); Eosinophils # (Auto) 0.1 Thou/mm3 (0.0-0.5); Eosinophils % (Auto) 2 % (0-10); Hematocrit 30.5 % (36.0-46.0); Hemoglobin 9.6 g/dL (12.0-16.0); Immature Granulocytes Auto 0.11 Thou/mm3 (0.00-0.00); Lymphocytes # (Auto) 1.2 Thou/mm3 (1.0-4.8); Lymphocytes % (Auto) 15 % (10-50); Mean Corpuscular HGB Conc 31.5 g/dl (31.0-37.0); Mean Corpuscular Hemoglobin 29.7 pg (25.0-35.0); Mean Corpuscular Volume 94 fL (80-100); Monocytes # (Auto) 0.9 Thou/mm3 (0.0-0.8); Monocytes % (Auto) 11 % (0-12); Neutrophils # (Auto) 5.7 Thou/mm3 (1.8-7.7); Neutrophils % (Auto) 70 % (37-80); Nucleated Red Blood Cell # 0.00 Thou/mm3 (0.00-0.00); Nucleated Red Blood Cell % 0 /100 WBC (0); Platelet Count 263 Thou/mm3 (140-440); RDW Standard Deviation 46.2 fL (36.4-46.3); Red Blood Count 3.23 Miln/mm3 (4.00-5.20); White Blood Count 8.1 Thou/mm3 (3.6-11.0)
[2025-03-20 00:52] LABS: Alanine Aminotransferase 19 U/L (10-49); Albumin, Serum 4.0 gm/dL (3.4-4.8); Albumin/Globulin Ratio 1.4 (1.2-2.2); Alkaline Phosphatase 300 U/L (46-116); Anion Gap 10 (7-16); Aspartate Amino Transferase 25 U/L (0-34); BUN/Creatinine Ratio 6 Ratio (12-20); Bilirubin,Total 0.4 mg/dL (0.3-1.2); Blood Urea Nitrogen 22 mg/dL (9-23); Calcium 8.9 mg/dL (8.3-10.6); Calcium (Corrected) 8.9 mg/dL (8.5-10.1); Carbon Dioxide 32.4 mMol/L (20.0-31.0); Chloride 99 mMol/L (98-107); Creatinine (Component) 3.6 mg/dL (0.6-1.3); Estimated Creatinine Clearance 12.6 mL/min (>60); Globulin 2.9 gm/dL (2.3-3.5); Glucose 240 mg/dL (74-106); Lipase 22 U/L (12-53); Osmolality,Calculated 292 (275-295); Potassium 4.2 mMol/L (3.4-5.1); Sodium 141 mMol/L (136-145); Total Protein 6.9 gm/dL (5.7-8.2); eGFR 13 See Note
[2025-03-20 01:27] VITALS: BP 178/90; PULSE 77; RESP 18; TEMP 37.2; O2SAT 96
--- NOTE | 2025-03-20 01:39 | PD.EDABDPN ---
ED Abdominal Pain RME/HPI General Chief Complaint: Back Pain/Injury Stated complaint: BACK PAIN SOB Time seen by provider: 03/20/25 00:07 Arrival date/time: 03/19/25 23:52 RME / HPI RME / HPI narrative: 03/19/25 23:52 This is a case of 64-year-old female with no medical history came in in the emergency room due to bilateral flank pain radiating to the abdomen for 3 days associated with nausea vomiting persistence of the symptoms thus patient decided to sought consult here in the emergency room DR. JHAVERI MAIN ED EVALUATION: 64 y/o wheelchair-dependent s/p CVA female with Hx of ESRD and Dialysis, CHF and HTN presents to ED c/o suprapubic abdominal pain with associated vomiting, and paravertebral mid-back pain x 1 day. Per daughter, patient make urine, but suffers from urinary incontinence. States patient spends most of her day sedentary laying in bed. Patient was last dialyzed on 03/19/2025 (Friday morning). No other concerns or complaints expressed at this time. Related Data Home Medications ?Medication ?Instructions ?Recorded ?Confirmed donepezil 5 mg tablet 5 mg PO HS 12/16/22 01/04/25 losartan 25 mg tablet 25 mg PO DAILY 07/22/23 01/04/25 Held on 01/06/25. Instructions: Resume on 01/13/25. Follow up renal panel in 1 week, check with PCP before resuming. budesonide-formoterol HFA 80 2 puff inhalation BID PRN 01/04/25 01/04/25 mcg-4.5 mcg/actuation aerosol shortness of breath or wheezing inhaler (Breyna) carvedilol 12.5 mg tablet 12.5 mg PO BID 01/04/25 01/04/25 empagliflozin 25 mg tablet 25 mg PO QAM 01/04/25 01/04/25 (Jardiance) Held on 01/06/25. Instructions: Resume on 01/13/25. Complete UTI treatment and resume with PCP. furosemide 80 mg tablet 80 mg PO BID 01/04/25 01/04/25 insulin degludec 100 unit/mL (3 22 unit subcut .AM 01/04/25 01/04/25 mL) subcutaneous pen (Tresiba FlexTouch U-100 insulin) insulin lispro 100 unit/mL 1 sliding scale dose subcut BID 01/04/25 01/04/25 subcutaneous pen (Humalog KwikPen (U-100) Insulin) loratadine 10 mg disintegrating 10 mg PO QDAY 01/04/25 01/04/25 tablet (Alavert) sennosides 8.6 mg tablet (senna) 8.6 mg PO QDAY PRN constipation 01/04/25 01/04/25 sevelamer carbonate 800 mg tablet 800 mg PO TIDWMEAL 01/04/25 01/04/25 Previous Rx's ?Medication ?Instructions ?Recorded pantoprazole 40 mg tablet,delayed 40 mg PO QDAY #30 tabs 12/26/22 release cefdinir 300 mg capsule 300 mg PO Q48H #5 caps 01/06/25 naproxen 250 mg tablet 250 mg PO BID PRN pain #6 tabs 03/01/25 sodium polystyrene sulfonate 15 15 g PO BID PRN hyperkalemia 03/01/25 gram oral powder #453.6 grams Allergies Allergy/AdvReac Type Severity Reaction Status Date / Time morphine Allergy Severe Agitated Verified 03/19/25 23:57 Review of Systems Review of Systems Systems Reviewed: All systems reviewed, normal except as documented Past Medical History Past Medical History NEUROLOGIC: Positive Neurological Disorders, Cerebrovascular Accident and Dementia CARDIAC: Positive Cardiac Disorders, Hypercholesterolemia, Congestive Heart Failure and Hypertension RESPIRATORY: Positive Asthma and Pneumonia GASTROINTESTINAL: Positive Gastroesophageal Reflux Disease and Obesity GENITOURINARY: Positive Genitourinary Disorders, Renal Disease, Kidney Stones and Dialysis (MWF) REPRODUCTIVE: Positive Previous Pregnancies MUSCULOSKELETAL: Positive Musculoskeletal Disorders, Arthritis and Osteomyelitis ENT: Positive Cataracts ENDOCRINE: Positive Endocrine Disorders, Diabetes Mellitus Type 2 and Hypoglycemia HEMATOLOGIC: Positive Blood Disorders and Anemia OTHER HISTORY: Positive Hospitalization (kidney problems) Surgical History SURGICAL: Positive Angiogram, Abdominal Surgery, Tracheostomy (about 2 yrS ago was in coma, intubated, had TUBEFEEDING, all removed now), Gastrostomy and Section ED Exam Narrative Physical exam: Generally patient is obese and chronically ill-appearing, chest shows right upper chest Vas-Cath to be in place, heart regular rate and rhythm, lungs clear to auscultation equal bilaterally, abdomen is soft bowel sounds present nondistended periumbilical abdominal tenderness without rebound. Musculoskeletal exam shows the patient have mid paravertebral muscular tenderness to palpation. Neurologic exam Haley Coma Scale is 15 Course Quality Measures none Orders Category Date Time Status CT abdomen pelvis wo con Stat Exams 03/20/25 00:07 Taken CBC Stat Lab 03/20/25 00:20 Completed Comprehensive Metabolic Panel Stat Lab 03/20/25 00:20 Completed Lipase Stat Lab 03/20/25 00:20 Completed Urinalysis Stat Lab 03/20/25 00:07 Ordered Morphine Inj Med 03/20/25 01:38 Pending 5 mg IM X1 ONE Vital Signs Vital signs: Vital Signs Temperature 98.7 F 03/19/25 23:59 Respiratory Rate 18 03/19/25 23:59 Blood Pressure 128/66 03/19/25 23:59 Pulse Oximetry (%) 91 L 03/19/25 23:59 Oxygen Delivery Method Room Air 03/19/25 23:59 Abdominal Pain MDM MDM Narrative MDM Narrative:: Scribe Attestation: IRosanna, am scribing for and in the presence of Dr. Jhaveri. Provider Notation: Although this document has been carefully reviewed, there may still be some phonetic and other typographical errors. These errors are purely grammatical due to imperfections in the software program and should not be construed in any way to compromise the substance of the patient's medical care during this visit. I interpreted all labs. Lab work shows no acute abnormality. Patient makes very little urine due to the fact that she has a history of dialysis dependent renal failure. CT scan done the abdomen and pelvis without contrast showed no acute disease process. Patient received morphine 5 mg IM with benefit. Patient will be discharged in stable condition to follow-up with her primary care physician and keep her dialysis appointment on Friday which is tomorrow. Patient data External records reviewed:: [facility] previous records (Reviewed prior ED records from 03/01/25. Patient was seen for Anterior chest wall pain.) Clinical information provided by:: patient and family (Daughter) Social determinants that could affect healthcare access:: none Patient has the following chronic illnesses:: Dementia, Hypercholesterolemia, Congestive Heart Failure, Hypertension, Asthma, Gastroesophageal Reflux Disease, Obesity, Renal Disease, Kidney Stones and Dialysis (MWF), Arthritis, Osteomyelitis, Cataracts, Diabetes Mellitus Type 2, Hypoglycemia, Anemia How is presenting disease/condition affected by chronic disease/condition?: exacerbated by Evaluation data The following diagnostics were reviewed and interpreted by me:: lab results and radiology exam(s) Lab and/or radiology exams considered but not ordered:: None Interpretation Summary: RADIOLOGY Abdomen/Pelvis CT: Findings: The lung bases are clear. The pancreas, spleen, kidneys and adrenals are unremarkable on this noncontrast study. S/p cholecystectomy. No biliary ductal dilatation. Mild irregular liver margins. No evidence of bowel obstruction. The appendix is within normal limits. Fat-containing umbilical hernia without evidence of inflammation. There is no mesenteric or retroperitoneal adenopathy. The urinary bladder is unremarkable. There is no free fluid or free air. Degenerative changes of the imaged portions of the spine. Chronic multilevel disc disease. No acute fractures. Vascular calcifications. The uterus and ovaries are within normal limits. Small hiatus hernia. Impression: 1. No evidence of kidney or ureteral stones. 2. Possible cirrhosis. 3. Small hiatus hernia. Medications / Prescriptions Medications or Prescriptions considered but not ordered:: None Medication administrations:: Medication Administration History Morphine Sulfate (Morphine Sulf Inj 10 Mg/Ml Vial) 5 mg IM X1 ONE Stop: 03/20/25 01:39 See above if any. Consultations Consultation(s) initiated? (list below): No Diagnosis Differential diagnosis abdominal pain: abdominal pain, acute appendicitis, calculus of kidney, constipation, diverticulitis, gastroenteritis, pancreatitis and small bowel obstruction Most likely diagnosis given after review of the tests above:: none Admission Indicated Admission indicated?: not indicated Explain why admission is indicated or not indicated:: Patient does not meet admission criteria. Admission Request Was there a request for admission?: No Disposition Plan Disposition Plan: Discharge Discharge Attestation Discharge Attestation: The patient and all family members were given an opportunity to ask questions and understood the discharge instructions. Discharge instructions specifically effects, indications for sooner follow up or return to the emergency department, and the expected course of current diagnosis. Patient condition: Stable Discharge Plan Plan Patient Disposition: HOME (Self Care) Prescriptions/Referrals Prescriptions/Med Rec: No Action donepezil 5 mg Tablet 5 mg PO HS pantoprazole 40 mg tablet,delayed release (DR/EC) 40 mg PO QDAY Qty: 30 0RF insulin degludec [Tresiba FlexTouch U-100] 100 unit/mL (3 mL) insulin pen 22 unit SUBCUT .AM insulin lispro [Humalog KwikPen Insulin] 100 unit/mL insulin pen 1 sliding scale dose SUBCUT BID furosemide 80 mg tablet 80 mg PO BID Patient Comments: TAKE 1 TABLET BY MOUTH TWICE A DAY AT 8AM AND AT 2PM carvedilol 12.5 mg tablet 12.5 mg PO BID Patient Comments: TAKE 1 TABLET BY MOUTH TWICE A DAY budesonide-formoterol [Breyna] 80-4.5 mcg/actuation HFA aerosol inhaler 2 puff INHALATION BID PRN (Reason: shortness of breath or wheezing) Patient Comments: INHALE 2 PUFFS BY MOUTH TWICE A DAY (IN THE MORNING AND THE EVENING) sevelamer carbonate 800 mg tablet 800 mg PO TIDWMEAL Patient Comments: TAKE 1 TABLET BY MOUTH THREE TIMES A DAY WITH MEALS loratadine [Alavert] 10 mg tablet,disintegrating 10 mg PO QDAY sennosides [senna] 8.6 mg tablet 8.6 mg PO QDAY PRN (Reason: constipation) Jardiance 25 mg tablet 25 mg PO QAM cefdinir 300 mg capsule 300 mg PO Q48H Qty: 5 0RF Rx Instructions: After Dialysis on dialysis days sodium polystyrene sulfonate 15 gram Powder 15 g PO BID PRN (Reason: hyperkalemia) Qty: 453.6 0RF naproxen 250 mg tablet 250 mg PO BID PRN (Reason: pain) Qty: 6 0RF losartan 25 mg tablet 25 mg PO DAILY Patient Comments: TAKE 1 TABLET BY MOUTH EVERY DAY Referrals: No Primary/Family,Physician [Primary Care Provider] - In 1 week Problem List Clinical Impression: Abdominal pain, Musculoskeletal back pain Patient/Caregiver Discharge Instructions Additional Instructions: Continue all current medications. Keep your dialysis appointments. Follow-up with your doctor. Return to ER as needed or if condition worsens. Print Language: Zambian Stand Alone Forms: Anh Award Info., Patient Portal Info Letter
--- NOTE | 2025-03-20 02:53 | PRELIM_ITS ---
CT scan of the abdomen and pelvis without intravenous contrast (axial sections with sagittal and coronal reformats) March 20, 2025 at 0115 hours Clinical History: Kidney stone. Comparison: None. Findings: The lung bases are clear. The pancreas, spleen, kidneys and adrenals are unremarkable on this noncontrast study. S/p cholecystectomy. No biliary ductal dilatation. Mild irregular liver margins. No evidence of bowel obstruction. The appendix is within normal limits. Fat-containing umbilical hernia without evidence of inflammation. There is no mesenteric or retroperitoneal adenopathy. The urinary bladder is unremarkable. There is no free fluid or free air. Degenerative changes of the imaged portions of the spine. Chronic multilevel disc disease. No acute fractures. Vascular calcifications. The uterus and ovaries are within normal limits. Small hiatus hernia. Impression: 1. No evidence of kidney or ureteral stones. 2. Possible cirrhosis. 3. Small hiatus hernia. Report Electronically Signed By: Uvaldo Reyna 03/20/2025 2:52:48 AM [EST]
[2025-03-20] MEDS: KETOROLAC INJ 60 MG/2 ML VIAL 30 MG IM (03:26)
== END 2025-03-20 03:48 | disposition home or self-care (01) ==
PROVIDERS: Nurse Practitioner Family; Emergency Provider Emergency Medicine
DX: R10.9 Unspecified abdominal pain (principal); M54.6 Pain in thoracic spine; K44.9 Diaphragmatic hernia without obstruction or gangrene
CPT/HCPCS: 36415; 74176; 80053; 81001; 83690; 85025; 96372; 99283; J1885